=== PATIENT | female | born 1950 | race Caucasian/White ===

== ENCOUNTER → 2024-06-13 | Outpatient (CLI) | payer MEDICARE, SELFPAY ==
[2024-06-13 10:40] LABS: Basophils % (Auto) 0 % (0-2.5); Eosinophils # (Auto) 0.3 Thou/mm3 (0.0-0.5); Eosinophils % (Auto) 4 % (0-10); Hematocrit 43.7 % (36.0-46.0); Hemoglobin 14.1 g/dL (12.0-16.0); Immature Granulocytes % (Auto) 0 % (0-0); Immature Granulocytes Auto 0.03 Thou/mm3 (0.00-0.00); Lymphocytes # (Auto) 1.4 Thou/mm3 (1.0-4.8); Lymphocytes % (Auto) 19 % (10-50); Mean Corpuscular HGB Conc 32.3 g/dl (31.0-37.0); Mean Corpuscular Hemoglobin 30.2 pg (25.0-35.0); Mean Corpuscular Volume 94 fL (80-100); Monocytes # (Auto) 0.4 Thou/mm3 (0.0-0.8); Monocytes % (Auto) 6 % (0-12); Neutrophils # (Auto) 5.1 Thou/mm3 (1.8-7.7); Neutrophils % (Auto) 71 % (37-80); Nucleated Red Blood Cell % 0 /100 WBC (0); Platelet Count 327 Thou/mm3 (140-440); RDW Standard Deviation 46.1 fL (36.4-46.3); Red Blood Count 4.67 Miln/mm3 (4.00-5.20); White Blood Count 7.2 Thou/mm3 (3.6-11.0)
[2024-06-13 10:49] LABS: Glucose Estimated Average 97 mg/dL (80-131)
[2024-06-13 10:57] LABS: Sed Rate (ESR) 11 mm/hr (0-30)
[2024-06-13 11:02] LABS: Alanine Aminotransferase 21 U/L (10-49); Albumin, Serum 4.7 gm/dL (3.4-4.8); Albumin/Globulin Ratio 1.6 (1.2-2.2); Alkaline Phosphatase 69 U/L (46-116); Anion Gap 9 (7-16); Aspartate Amino Transferase 19 U/L (0-34); BUN/Creatinine Ratio 21 Ratio (12-20); Bilirubin,Total 0.6 mg/dL (0.3-1.2); Blood Urea Nitrogen 19 mg/dL (9-23); C-Reactive Protein < 0.4 mg/dL (0.0-0.9); Calcium 9.6 mg/dL (8.3-10.6); Calcium (Corrected) 9.6 mg/dL (8.5-10.1); Carbon Dioxide 28.2 mMol/L (20.0-31.0); Chloride 102 mMol/L (98-107); Creatinine (Component) 0.9 mg/dL (0.6-1.3); Free T4 (Free Thyroxine) 1.29 ng/dL (0.89-1.76); Globulin 2.9 gm/dL (2.3-3.5); Glucose 80 mg/dL (74-106); Osmolality,Calculated 278 (275-295); Potassium 4.2 mMol/L (3.4-5.1); Sodium 139 mMol/L (136-145); Thyroid Stimulating Hormone 0.96 uIU/mL (0.55-4.78); Total Protein 7.6 gm/dL (5.7-8.2); eGFR > 60 See Note
[2024-06-13 11:06] LABS: Ferritin 108 ng/mL (7.3-270.7); T4 (Thyroxine) 9.1 mcg/dL (4.5-10.9)
[2024-06-13 16:03] LABS: RA Screen Negative (Negative)
[2024-06-19 06:58] LABS: ANA Screen, IFA POSITIVE (NEGATIVE); Thyroid Peroxidase Antibodies* <1 IU/mL (<9)
== END | disposition home or self-care (01) ==
LOC: COPL 09:01
PROVIDERS: PCP Family Medicine; Referring Provider Nurse Practitioner Family; Visit Provider Nurse Practitioner Family
DX: R53.83 Other fatigue (principal); D89.9 Disorder involving the immune mechanism, unspecified; Z86.39 Personal history of other endocrine, nutritional and metabolic disease; Z82.49 Family history of ischemic heart disease and other diseases of the circulatory system
CPT/HCPCS: 36415; 80053; 82728; 83036; 84436; 84439; 84443; 85025; 85652; 86038; 86140; 86376; 86430

== ENCOUNTER → 2024-06-13 | Outpatient (CLI) | payer MEDICARE, SELFPAY ==
--- NOTE | 2024-06-13 13:17 | XR_ITS ---
Examination: Thoracolumbar spine 2 views Technique one AP lateral thoracolumbar spine 2 views Exam date and time: June 13, 2024 1349 hours INDICATIONS: Back pain years FINDINGS: Prominent osteopenia Lumbar levoscoliosis 42 degrees Moderate thoracic lumbar spondylosis Diffuse moderate to advanced lumbar degenerative disc disease, most severe L5-S1 IMPRESSION: Severe lumbar levoscoliosis Moderate to advanced diffuse lumbar degenerative disc disease, most severe L5-S1
--- NOTE | 2024-06-13 13:17 | XR_ITS ---
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
== END | disposition home or self-care (01) ==
LOC: CDIM 12:28
PROVIDERS: PCP Family Medicine; Referring Provider Nurse Practitioner Family; Visit Provider Nurse Practitioner Family
DX: M19.071 Primary osteoarthritis, right ankle and foot (principal); M79.672 Pain in left foot; M41.86 Other forms of scoliosis, lumbar region; M51.369 Other intervertebral disc degeneration, lumbar region without mention of lumbar back pain or lower extremity pain
CPT/HCPCS: 72080; 73630

== ENCOUNTER → 2024-06-26 | Outpatient (CLI) | payer MEDICARE, SELFPAY ==
--- NOTE | 2024-06-26 14:08 | XR_ITS ---
Examination: Venous duplex lower extremity sonogram, bilateral. Date and time of exam: June 26, 2024 1438 hours INDICATIONS: Bilateral lower leg swelling and pain beginning several months ago Technique: Multiple sonographic images of the deep venous system have been obtained. B-mode/2-D grayscale imaging of vascular structures and Doppler spectral analysis (waveforms) and color performed Both legs are examined. Findings: Deep venous systems do not demonstrate abnormal echogenicity. All visualized deep veins exhibit compressibility. All visualized deep veins exhibit augmentation. Impression: Negative for deep vein thrombosis
[2024-06-26 14:43] LABS: D-Dimer < 250 ng/mL (<600)
[2024-06-26 14:45] LABS: Cardiac Risk Estimate 4.4 RATIO (3.7-5.6); Cholesterol 192 mg/dL (132-200); HDL Cholesterol 44 mg/dL (40-60); LDL Cholesterol,Calculated 126 mg/dL (0-130); Triglycerides 112 mg/dL (30-150)
[2024-07-04 12:04] LABS: ANA Screen, IFA POSITIVE (NEGATIVE); Complement Component C3* 147 mg/dL (83-193); DNA (ds) Antibody* <1 IU/mL
== END | disposition home or self-care (01) ==
LOC: COPL 13:29
PROVIDERS: PCP Family Medicine; Referring Provider Nurse Practitioner Family; Visit Provider Radiology Diagnostic Radiology
DX: I83.93 Asymptomatic varicose veins of bilateral lower extremities (principal); R76.0 Raised antibody titer; Z82.49 Family history of ischemic heart disease and other diseases of the circulatory system
CPT/HCPCS: 36415; 80061; 85379; 86038; 86160; 86225; 93970

== ENCOUNTER → 2024-07-03 | Outpatient (CLI) | payer MEDICARE, SELFPAY ==
[2024-07-09 06:30] LABS: Fecal Globin Result NOT DETECTED (NOT DETECTED)
== END | disposition home or self-care (01) ==
LOC: SLDO 16:06
PROVIDERS: PCP Family Medicine; Referring Provider Nurse Practitioner Family; Visit Provider Nurse Practitioner Family
DX: Z12.11 Encounter for screening for malignant neoplasm of colon (principal)
CPT/HCPCS: 82274; G0328

== ENCOUNTER → 2024-08-15 | Outpatient (CLI) | payer MEDICARE, SELFPAY ==
[2024-08-15 17:10] LABS: Misc Send Out* See Sep Rpt
[2024-08-15 17:52] LABS: Basophils % (Auto) 0 % (0-2.5); Eosinophils # (Auto) 0.2 Thou/mm3 (0.0-0.5); Eosinophils % (Auto) 4 % (0-10); Hematocrit 41.4 % (36.0-46.0); Hemoglobin 13.6 g/dL (12.0-16.0); Immature Granulocytes % (Auto) 0 % (0-0); Immature Granulocytes Auto 0.01 Thou/mm3 (0.00-0.00); Lymphocytes # (Auto) 1.7 Thou/mm3 (1.0-4.8); Lymphocytes % (Auto) 24 % (10-50); Mean Corpuscular HGB Conc 32.9 g/dl (31.0-37.0); Mean Corpuscular Hemoglobin 29.6 pg (25.0-35.0); Mean Corpuscular Volume 90 fL (80-100); Monocytes # (Auto) 0.4 Thou/mm3 (0.0-0.8); Monocytes % (Auto) 6 % (0-12); Neutrophils # (Auto) 4.4 Thou/mm3 (1.8-7.7); Neutrophils % (Auto) 65 % (37-80); Nucleated Red Blood Cell % 0 /100 WBC (0); Platelet Count 334 Thou/mm3 (140-440); RDW Standard Deviation 44.1 fL (36.4-46.3); Red Blood Count 4.59 Miln/mm3 (4.00-5.20); White Blood Count 6.8 Thou/mm3 (3.6-11.0)
[2024-08-15 18:52] LABS: Sed Rate (ESR) 9 mm/hr (0-30)
[2024-08-15 20:40] LABS: Glucose Estimated Average 94 mg/dL (80-131); Hemoglobin A1C 4.9 % Hgb (4.8-6.0)
[2024-08-15 20:43] LABS: Alanine Aminotransferase 21 U/L (10-49); Albumin, Serum 4.2 gm/dL (3.4-4.8); Albumin/Globulin Ratio 1.8 (1.2-2.2); Alkaline Phosphatase 69 U/L (46-116); Anion Gap 8 (7-16); Aspartate Amino Transferase 18 U/L (0-34); BUN/Creatinine Ratio 19 Ratio (12-20); Bilirubin,Total 0.4 mg/dL (0.3-1.2); Blood Urea Nitrogen 19 mg/dL (9-23); C-Reactive Protein < 0.5 mg/dL (0.0-0.9); Calcium 9.3 mg/dL (8.3-10.6); Calcium (Corrected) 9.3 mg/dL (8.5-10.1); Carbon Dioxide 29.6 mMol/L (20.0-31.0); Chloride 105 mMol/L (98-107); Free T4 (Free Thyroxine) 1.18 ng/dL (0.89-1.76); Globulin 2.3 gm/dL (2.3-3.5); Glucose 104 mg/dL (74-106); Osmolality,Calculated 287 (275-295); Potassium 4.1 mMol/L (3.4-5.1); Sodium 143 mMol/L (136-145); Thyroid Stimulating Hormone 0.86 uIU/mL (0.55-4.78); Total Protein 6.5 gm/dL (5.7-8.2); eGFR 59 See Note
[2024-08-15 20:44] LABS: Folate 11.64 ng/mL (>5.38); Vitamin B12 276 pg/mL (211-911); Vitamin D 25 Hydroxy Total 11.2 ng/mL (7.3-40.2)
[2024-08-16 15:40] LABS: RA Screen Negative (Negative)
== END | disposition home or self-care (01) ==
PROVIDERS: PCP Internal Medicine; Referring Provider Internal Medicine; Visit Provider Internal Medicine
DX: M19.90 Unspecified osteoarthritis, unspecified site (principal); M51.362 Other intervertebral disc degeneration, lumbar region with discogenic back pain and lower extremity pain; R20.2 Paresthesia of skin; R21 Rash and other nonspecific skin eruption; R76.8 Other specified abnormal immunological findings in serum
CPT/HCPCS: 36415; 80053; 82306; 82607; 82746; 83036; 84439; 84443; 85025; 85652; 86140; 86146; 86147; 86160; 86200; 86225; 86235; 86376; 86430; 86812; 86880

== ENCOUNTER → 2024-10-03 | Outpatient (CLI) | payer MEDICARE, SELFPAY ==
--- NOTE | 2024-10-03 14:45 | XR_ITS ---
Examination: MRI lumbar spine without contrast Date and time of exam: October 03, 2024 1529 hours INDICATIONS: Low back pain 30 years radiating down the legs Technique: Multiple MRI axial and sagittal sections lumbar spine. Sagittal T2-weighted images, TR 3500, TE 118 T1 weighted transverse sections, TR 688 T8.5, T2-weighted sagittal sections T1 weighted sagittal sections TR 621, TE 30 T2 axial sections, TR 4, 190, TE 84. Findings: Civil Engineering Design Draftsperson film severe lumbar levoscoliosis 38 degrees Diffuse lumbar disc desiccation Moderate disc narrowing L5-S1 No spondylolisthesis L5-S1 up to 8 mm left paracentral subarticular foraminal disc bulge, displacing the left S1 nerve root L4-L5 prominent left facet arthropathy with narrowing at the left intervertebral foramen mild left L4 ganglionic compression L3-L4 6 mm right foraminal disc bulges no ganglionic compression L2-L3 3 mm central left paracentral disc bulge L1-2 no disc protrusion IMPRESSION: L5-S1 8 mm left paracentral subarticular foraminal disc bulge displacing the left S1 nerve root L4-L5 prominent left facet arthropathy narrowing the left intervertebral foramen with mild left L4 ganglionic compression
== END | disposition home or self-care (01) ==
LOC: SMRI 14:36
PROVIDERS: PCP Family Medicine; Referring Provider Neurological Surgery; Visit Provider Neurological Surgery
DX: M47.816 Spondylosis without myelopathy or radiculopathy, lumbar region (principal); M48.061 Spinal stenosis, lumbar region without neurogenic claudication; G95.20 Unspecified cord compression; M51.370 Other intervertebral disc degeneration, lumbosacral region with discogenic back pain only
CPT/HCPCS: 72148

== ENCOUNTER 2024-11-06 15:00 | Outpatient (RCR) | payer MEDICARE, SELFPAY ==
--- NOTE | 2024-10-29 16:10 | PTNOTE_ITS ---
PT OP Initial Eval Patient Information Outpatient Physical Therapy Treatment Date: 10/29/24 Visit Reasons: Radiculopathy Cervical Region Medical Diagnosis: M54.5; M54.16 Treatment Dx #1: Back Pain Treatment Dx #2: LE weakness Start of Care: 10/29/24 Date of Onset: 6 months ago Smoking Status Smoking Status: Never smoker Initial Assessment Subjective: Pt is a 74 y/o female reports of chronic back pain (12/22) with BLE weakness L>R worsening 6 months ago. Pt's most recent MRI found multiple disc bulge worse at L5-S1 8 mm. Pt's past xray showed 42 deg of lumbar levoscoliosis. Pt has limitation with sitting, standing, chores, walking, lifting, balance, and performing recreational activities. Objective: L/S AROM: all motions are 50 % towards end range with pain Hip PROM: all motions are WFL except IR bilaterally Hip MMTs: grossly 3/5 Special Test (+) slump Assessment: Pt demonstrate back pain with BLE weakness consistent with MRI findings leading to difficulty with ADLs. Pt will attempt physical therapy if pain persist Pt will be refer back to MD for further consultation. Short Term and International Editorial Producer Goals 1) Increase L/S AROM WFL in 6 wks to be able to perform chores 2) Decrease back pain to 4/10 in 6 wks to be able to stand more than 30 mins 3) Increase core strength WFL in 6 wks to be able to perform lifting activities 4) Increase hip MMTs grossly to 4-/5 in 6 wks to be able to walk more than 30 mins 5) Indep with HEP Treatment Plan 1) Manual Therapy 2) Therapeutic Activities 3) Therapeutic Exercises 4) Modalities (ice, heat) Frequency and Duration: 2 x wk for 6 wks Certification Dates: 10/29/24 to 01/29/25 Procedure Charges OP PT Eval Mod Complex 30 minutes: Yes
--- NOTE | 2024-11-06 16:28 | PT.ODAYNRPT ---
PT Outpatient Daily Note OP Daily Note Outpatient Physical Therapy Treatment Date: 11/06/24 Visit Reasons: Radiculopathy Cervical Region Subjective: Pt reports she often gets leg cramps where they are so debilitating she can not move. Objective: Please see flow sheet for the mary ann list. Assessment: Pt demonstrates fair activity tolerance, minimal pain with light interventions. Plan: Continue with pOC. Length of Time (minutes) of Treatment: 30 Minutes Procedure Charges Therapeutic Exercise 30 minutes: Yes
== END 2024-11-11 23:59 | disposition home or self-care (01) ==
LOC: CPTX 15:00
PROVIDERS: PCP Neurological Surgery; Referring Provider Neurological Surgery; Visit Provider Neurological Surgery
DX: M54.16 Radiculopathy, lumbar region (principal); R53.1 Weakness; M41.86 Other forms of scoliosis, lumbar region; G89.29 Other chronic pain
CPT/HCPCS: 97110; 97162

== ENCOUNTER 2024-12-02 13:30 | Outpatient (RCR) | payer MEDICARE, SELFPAY ==
--- NOTE | 2024-11-13 15:37 | PTNOTE_ITS ---
PT Outpatient Daily Note OP Daily Note Outpatient Physical Therapy Treatment Date: 11/13/24 Visit Reasons: neck pain Subjective: Pt reports LBP is moderate today. Objective: Please see flow sheet for ther ex list. Assessment: Added interventions completed with no complaints. Plan: Continue with POC. Length of Time (minutes) of Treatment: 30 Minutes FOREIGN SERVICE TEACHER Service Modifier Method I: Divide the number of min of care provided by the FOREIGN SERVICE TEACHER/EL by the total min of care provided then multiply by 100. If greater than 11 percent modifier is required. Method II: Divide the total time of care provided to patient by 10 (round to the nearest whole number) and add 1 min. to set the minimum time requirement. If treatment total was 60 min., then 10% of 6 min PT CQ modifier applied: CQ Modifier applied Procedure Charges Therapeutic Exercise 30 minutes: Yes
--- NOTE | 2024-11-18 13:48 | PTNOTE_ITS ---
PT Outpatient Daily Note OP Daily Note Outpatient Physical Therapy Treatment Date: 11/18/24 Visit Reasons: neck pain Subjective: Pt reports she continues to have pain in her l/s and LE symptoms. Pt mentioned that she also dealing with neck issue and had a dizziness episode when she was grocery shopping, thankfully was holding on to the cart other macias she feels she would have fallen. Pt shared she gets episodes of dizziness. Objective: Please see flow sheet for ther ex list. Assessment: Pt demonstrates poor activity tolerance, continues to report pain and LE symptom.s Plan: Continue with poC. Length of Time (minutes) of Treatment: 30 Minutes REHABILITATION SERVICES COORDINATOR Service Modifier Method I: Divide the number of min of care provided by the REHABILITATION SERVICES COORDINATOR/EL by the total min of care provided then multiply by 100. If greater than 11 percent modifier is required. Method II: Divide the total time of care provided to patient by 10 (round to the nearest whole number) and add 1 min. to set the minimum time requirement. If treatment total was 60 min., then 10% of 6 min PT CQ modifier applied: CQ Modifier applied Procedure Charges Therapeutic Exercise 30 minutes: Yes
--- NOTE | 2024-11-20 14:01 | PTNOTE_ITS ---
PT Outpatient Daily Note OP Daily Note Outpatient Physical Therapy Treatment Date: 11/20/24 Visit Reasons: neck pain Subjective: Pt reports back continues to be painful and legs are sore had bad leg cramps on L LE last night. Objective: Please see flow sheet for ther ex list. Assessment: Pt demonstrates poor activity tolerance due to aggravating symptoms with act ivity. Interventions given alternating sitting and standing to maximize rehab potential. Plan: Continue with poC. Length of Time (minutes) of Treatment: 30 Minutes NEIGHBORHOOD WORKER Service Modifier Method I: Divide the number of min of care provided by the NEIGHBORHOOD WORKER/SHEEP RANCHER by the total min of care provided then multiply by 100. If greater than 11 percent modifier is required. Method II: Divide the total time of care provided to patient by 10 (round to the nearest whole number) and add 1 min. to set the minimum time requirement. If treatment total was 60 min., then 10% of 6 min PT CQ modifier applied: CQ Modifier applied Procedure Charges Therapeutic Exercise 30 minutes: Yes
--- NOTE | 2024-11-27 13:12 | PTNOTE_ITS ---
PT Outpatient Daily Note OP Daily Note Outpatient Physical Therapy Treatment Date: 11/27/24 Visit Reasons: neck pain Subjective: Pt reports back continues to hurt, notices that she is having pain in her R glute. Objective: Please see flow sheet for ther ex list. Assessment: * Modified interventions to accommodate reported pain and back discomfort. Plan: Continue with poc. Length of Time (minutes) of Treatment: 30 Minutes Procedure Charges Therapeutic Exercise 30 minutes: Yes
--- NOTE | 2024-12-02 13:49 | PTNOTE_ITS ---
PT OP Progress/Discharge Note Date of Service: 12/02/24 Progress Note/DC Note Progress Note/Discharge Note: DC Note Patient Information Visit Reasons: neck pain Medical Diagnosis: M54.5; M54.16 Treatment Dx #1: Back Pain Treatment Dx #2: LE Weakness Service Continue Service or Discharge: Discharge Discharge Date: 12/02/24 Status Subjective: Pt's back and legs continues to hurt. Pt mentioned she almost stumble a few times at the store due to legs giving out or feeling numb. Pt still has limitation with sitting, standing, chores, self care, cooking, cleaning, and per forming recreational activities. Objective: L/S AROM: all motions are 50 % towards end range Hip PROM: all motions are WFL except IR bilaterally Hip MMTs: grossly 3/5 Special Test (+) slump (+) SLR Assessment: Pt demonstrate limited L/S mobility and continue weakness leading to difficulty with ADLs. Pt will no longer benefit from physical therapy due to minimal progress towards goals. Pt was instructed on HEP last session and educated to continue exercises to maintain overall mobility. Pt performed all exercises safely, thank you for your referrals Plan: D/C home with HEP and follow up with MD URRUTIA Procedure Charges Therapeutic Exercise 30 minutes: Yes
== END 2024-12-12 23:59 | disposition home or self-care (01) ==
LOC: CPTX 13:30
PROVIDERS: PCP Neurological Surgery; Referring Provider Neurological Surgery; Visit Provider Neurological Surgery
DX: M51.17 Intervertebral disc disorders with radiculopathy, lumbosacral region (principal); M41.86 Other forms of scoliosis, lumbar region; R26.2 Difficulty in walking, not elsewhere classified; R26.89 Other abnormalities of gait and mobility
CPT/HCPCS: 97110

== ENCOUNTER 2025-04-10 11:56 | Inpatient (IN) | payer MEDICARE, SELFPAY ==
[2025-04-10] VITALS (7 sets, daily range): BP systolic 139–164; BP diastolic 76–89; PULSE 54–73; RESP 15–23; TEMP 36–37.1; O2SAT 95–99; BMI 32.3; BMI 32.1
--- NOTE | 2025-04-10 12:02 | EKG_ITS ---
[facility] Test Date: 2025-04-10 Pat Name: ESME LIZAMA Department: Room: - Gender: Female Aquatic Physiotherapist: : 1950 Requested By: Rasheed Huggins (SOLO) Order Number: [id number] Reading MD: Rasheed Huggins (CLINICAL DOCUMENTATION CONSULTANT) Measurements Intervals Coleman Rate: 58 P: 56 MS: 171 QRS: 18 QRSD: 92 T: 36 QT: 416 QTc: 409 Interpretive Statements SINUS BRADYCARDIA No previous ECG available for comparison /store/S0/[id number]/[id number].pdf
--- NOTE | 2025-04-10 12:02 | XR_ITS ---
Examination: CT brain head without contrast. 2-D sagittal coronal reconstructions Date and time of exam: April 10, 2025, 12:13 p.m. INDICATIONS: Stroke alert, onset focal neurologic deficit including facial numbness today CTDI: vol (mGy): 49.6 1024 DLP: (mGycm): 1024 Technique: Multiple CT axial sections of the brain have been obtained, 5 mm slice thickness. Contrast has not been administered. 2-D sagittal, coronal reconstructions have been obtained Low dose protocols were performed. One or more of the following dose reduction techniques were used; automated exposure control, adjustment of the mA and/or KV according to patient size, use of iterative reconstruction technique. Findings: No significant ventricular enlargement. Intra-axial or extra-axial hemorrhage density is not seen. No mass effect or midline shift Basal cisterns are not remarkable. Fourth ventricle is midline. Cranial vault intact. Impression: Negative for acute hemorrhage, mass effect or midline shift
--- NOTE | 2025-04-10 12:02 | XR_ITS ---
EXAMINATION: AP chest single view TECHNIQUE: Portable upright AP chest single view Date and time: April 10, 2025, 1317 hours, comparison September 13, 2016 INDICATIONS: Stroke alert today FINDINGS: Mild prominence left ventricle No aspiration pneumonia. Mild vascular congestion. Prominent osteopenia IMPRESSION: No aspiration pneumonia
--- NOTE | 2025-04-10 12:02 | XR_ITS ---
Examination: CTA carotids with intravenous contrast CTA brain, head with intravenous contrast. 2-D sagittal, coronal reconstructions. 3-D reconstructions. Exam date and time: April 10, 2025, 12:29 p.m. INDICATION: Stroke alert today CTDI: vol (mGy) 34.9 DLP: (mGycm) 460 Technique: Multiple CTA axial brain, head carotid images post intravenous contrast injection 75 cc, [id number]. 2-D sagittal, coronal reconstructions. 3-D reconstructions, 3-D post processing including vascular maximum intensity projection images. Low dose protocols were performed. One or more of the following dose reduction techniques were used; automated exposure control, adjustment of the mA and/or KV according to patient size, use of iterative reconstruction technique. Findings: No critical common carotid carotid bifurcation or internal carotid artery stenoses Codominant vertebral arteries in the neck with no critical stenoses Intracranial vertebral arteries basilar artery posterior cerebral branches fill with no occlusions Petrous juxtasellar portions of the internal carotid arteries M1 segments middle cerebral artery branches and anterior cerebral arteries fill with no large vessel occlusions IMPRESSION: No significant neck arterial stenoses No cerebral large vessel arterial occlusions or thrombus
--- NOTE | 2025-04-10 12:05 | EDNOTE_ITS ---
ED General RME/HPI General Chief complaint: General Adult/Misc Complain Stated complaint: LOST SPEECH, WENT BLACK, DISORIENTED LKW 10:30 Time Seen by Provider: 04/10/25 12:04 Arrival date/time: 04/10/25 11:56 74-year-old female patient with significant history of hypertension, CAD, currently taking atenolol, not taking any blood thinner, was brought in by family for evaluation regarding strokelike symptoms. Last well-known time 10:30 AM today. Patient suddenly developed inability to speak peak, numbness to the lower lip, drooling, seeing black, loss of vision, slight thinning of the throat, disoriented. According to the patient it lasted for more than an hour about 1 hour and a half. According to the patient symptoms gradually improved still having mild symptoms on my initial evaluation. Patient denies any upper or lower extremity weakness. Patient denies any fall. Denies any other complaints. Stroke alert was initiated right away. Related Data Home Medications ?Medication ?Instructions ?Recorded ?Confirmed losartan 100 mg tablet 100 mg PO QDAY 04/20/2004/15 naproxen 500 mg tablet 500 mg PO BID 04/20/2005/04 Allergies Allergy/AdvReac Type Severity Reaction Status Date / Time codeine Allergy Unknown Verified 04/10/25 12:05 Sulfa (Sulfonamide Allergy Unknown Verified 04/10/25 12:05 Antibiotics) acetaminophen (From Vicodin) Allergy Nausea Verified 04/10/25 12:05 hydrocodone (From Vicodin) Allergy Nausea Verified 04/10/25 12:05 Review of Systems Review of Systems Narrative Review of Systems: Review of system reviewed and within normal limits except mentioned in HPI ED Exam Narrative Physical exam: VITAL SIGNS: Reviewed. GENERAL APPEARANCE: Alert and interactive, follows commands, no acute distress, HEAD AND FACE: Non-traumatic. ENT: PERRL, pink conjunctivitis, eyelid no trauma, Mucous membrane moist. NECK: Supple, nontender, no nuchal rigidity. CHEST: No tenderness, no crepitus, no paradoxical movement, no retractions. LUNGS: Clear, well ventilated, symmetric, no rales, no wheezing, no ronchi, no stridor, good breath sounds bilaterally. HEART: Regular rate, regular rhythm, no murmur, no gallops. ABDOMEN: Soft, positive bowel sounds, nondistended, no guarding, nontender, no rebound, no masses, RECTAL: Deferred. GENITAL: Deferred. NEUROLOGICAL: Gross motor function intact sensory function intact, Appropriate for age. MUSCULOSKELETAL: low back nontender, full range of motion. EXTREMITIES: Nontender, full range of motion. SKIN: Color pink, dry, no rash, no lacerations, no abrasions, no contusions. LYMPHATICS: Deferred. Course Quality Measures none Orders Category Date Time Status Bedside Blood Glucose NOW Care 04/10/25 12:02 Active COVID-19 Screening Questionnaire NOW Care 04/10/25 13:37 Active Jig Boring Machine Operator For Metal NOW Care 04/10/25 12:02 Active Continuous Pulse Oximetry NOW Care 04/10/25 12:02 Completed Decision to Admit X1 Care 04/10/25 13:37 Completed EKG (ED ONLY) *Do not use* NOW Care 04/10/25 12:02 Completed Insert IV NOW Care 04/10/25 12:02 Active NIH Stroke Scale now Care 04/10/25 12:02 Active NPO NOW Care 04/10/25 12:02 Active Nurse Swallow Screen x1 Care 04/10/25 12:02 Active Consult to Neurology / Tele-Neurology Routine Cons 04/10/25 12:[address] angio stroke protocol Stat Exams 04/10/25 12:[address] stroke protocol Stat Exams 04/10/25 12:02 Completed EKG (ED Only) Stat Exams 04/10/25 12:02 Draft XR chest 1V portable Stat Exams 04/10/25 12:02 Completed CBC Stat Lab 04/10/25 14:15 Completed Comprehensive Metabolic Panel Stat Lab 04/10/25 12:30 Completed Drug Screen,Urine Stat Lab 04/10/25 13:46 Completed Magnesium Stat Lab 04/10/25 12:30 Completed Partial Thromboplastin Time Stat Lab 04/10/25 12:30 Completed Prothrombin Time with INR Stat Lab 04/10/25 12:30 Completed Troponin I Stat Lab 04/10/25 12:30 Completed Urinalysis, C/S if Indicated Stat Lab 04/10/25 13:46 Completed Aspirin [Ecotrin] Med 04/10/25 13:31 Discontinued 81 mg PO X1 ONE Labetalol* IV [Trandate* IV] Med 04/10/25 12:02 Active 10 mg IVP Q15M PRN Ondansetron Inj [Zofran Inj] Med 04/10/25 12:02 Active 4 mg IVP Q4HR PRN Vital Signs Vital signs: Vital Signs Temperature 98.7 F 04/10/25 12:03 Pulse Rate 64 04/10/25 12:03 Respiratory Rate 18 04/10/25 12:03 Blood Pressure 164/83 H 04/10/25 12:03 Pulse Oximetry (%) 99 04/10/25 12:03 Oxygen Delivery Method Room Air 04/10/25 12:03 Discharge Plan Plan Patient Disposition: Admit Acute Care w/in Hospital Discharge Disposition comment: Stable Problem List Clinical Impression: Stroke-like symptom MDM Narrative MDM hospital course (for use when minimal MDM required): 74-year-old female patient with significant history of hypertension, CAD, currently taking atenolol, not taking any blood thinner, was brought in by family for evaluation regarding strokelike symptoms. Last well-known time 10:30 AM today. Patient suddenly developed inability to speak peak, numbness to the lower lip, drooling, seeing black, loss of vision, slight thinning of the throat, disoriented. According to the patient it lasted for more than an hour about 1 hour and a half. According to the patient symptoms gradually improved still having mild symptoms on my initial evaluation. Patient denies any upper or lower extremity weakness. Patient denies any fall. Denies any other complaints. Stroke alert was initiated right away. CTA and plain CT of the head and neck all came back unremarkable. EKG showed sinus bradycardia, ventricular rate of 58 bpm, no ST segment elevation depression noted. Patient's workup all came back unremarkable. Plan of care discussed with the patient, who agrees to be admitted. Spoke with teleneurologist, who recommends admission for stroke workup patient patient was given 81 mg of aspirin. Spoke with hospitalist, who admitted the patient. Medication Administration(s) Medication Administration History Acetaminophen (Acetaminophen 325 Mg Tablet) 650 mg PO Q6H PRN PRN Reason: PAIN SCALE 1-3 (mild Stop: 05/10/25 15:32 Aspirin (Aspirin Ec 81 Mg Tabec) 81 mg PO QDAY [facility] Stop: 05/10/25 15:44 Heparin Sodium (Porcine) (Heparin Sod Inj 5000 Unit/Ml Vial) 5,000 unit SC Q12HR AIMEE Stop: 04/24/25 20:59 Sodium Chloride (Ns) 1,000 mls @ 75 mls/hr IV .[id number] AIMEE Stop: 04/11/25 04:49 Labetalol HCl (Labetalol Inj 5 Mg/Ml Vial 4 Ml) 10 mg IVP Q15M PRN PRN Reason: hypertension Ondansetron HCl (Ondansetron Inj 2 Mg/Ml Inj 2 Ml) 4 mg IVP Q4HR PRN PRN Reason: NAUSEA OR VOMITING Stop: 05/10/25 12:01 Sennosides (Senna Tablet) 1 tab PO QDAY PRN; Protocol PRN Reason: constipation Stop: 05/10/25 15:32 Discontinued Medications Aspirin (Aspirin Ec 81 Mg Tabec) 81 mg PO X1 ONE Stop: 04/10/25 13:32 Last Admin: 04/10/25 13:45 Dose: 81 mg Documented By: RONEN Diagnosis Differential Diagnosis ED Complaint MDM: Strokelike symptoms, atypical syncope, although pt's initial presentation w Diagnoses ruled out and/or further discussions: Strokelike symptoms
--- NOTE | 2025-04-10 12:05 | PC.NURSE ---
STROKE ALERT CALLED 1203.
--- NOTE | 2025-04-10 12:26 | PC.NURSE ---
PER DR. DOMINGUEZ (TELENEUROLOGIST), NIH SCORE IS 0; PT NOT A CANDIDATE FOR THROMBOLYTICS AT THIS TIME.
[2025-04-10 12:51] LABS: INR 1.0 (0.9-1.3); Partial Thromboplastin Time 20.2 Seconds (22.0-36.0); Prothrombin Time 11.0 Seconds (9.0-12.2)
[2025-04-10 12:54] LABS: Alanine Aminotransferase 28 U/L (10-49); Albumin, Serum 4.6 gm/dL (3.4-4.8); Anion Gap 9 (7-16); Aspartate Amino Transferase 31 U/L (0-34); BUN/Creatinine Ratio 9 Ratio (12-20); Bilirubin,Total 0.6 mg/dL (0.3-1.2); Blood Urea Nitrogen 9 mg/dL (9-23); Calcium 9.1 mg/dL (8.3-10.6); Calcium (Corrected) 9.1 mg/dL (8.5-10.1); Carbon Dioxide 25.3 mMol/L (20.0-31.0); Chloride 106 mMol/L (98-107); Creatinine (Component) 1.0 mg/dL (0.6-1.3); Estimated Creatinine Clearance 57.2 mL/min (>60); Globulin 2.6 gm/dL (2.3-3.5); Glucose 97 mg/dL (74-106); Magnesium 2.3 mg/dL (1.6-2.6); Osmolality,Calculated 278 (275-295); Potassium 4.6 mMol/L (3.4-5.1); Sodium 140 mMol/L (136-145); Total Protein 7.2 gm/dL (5.7-8.2); Troponin I < 0.020 ng/mL (0.0-0.045); eGFR 59 See Note
[2025-04-10 12:55] LABS: Albumin/Globulin Ratio 1.8 (1.2-2.2); Alkaline Phosphatase 61 U/L (46-116)
--- NOTE | 2025-04-10 13:01 | PD.TNEURO ---
Tele Neuro Consultation Consultation Date 04/10/25 Most Recent Vital Signs Last Vital Signs Temp 98.7 F 04/10/25 12:03 Pulse 64 04/10/25 12:35 Resp 18 04/10/25 12:03 BP 164/83 H 04/10/25 12:03 Pulse Ox 99 04/10/25 12:03 O2 Del Method Room Air 04/10/25 12:03 Laboratory-Coagulation Panel PT 11.0 Seconds (9.0-12.2) 04/10/25 12:30 INR 1.0 (0.9-1.3) 04/10/25 12:30 APTT 20.2 Seconds (22.0-36.0) L 04/10/25 12:30 Consultation Narrative [facility] TeleNeurology Consult Services Patient Name:???Carolin Peñaloza Date of :???1950 Identification Number:??? Date of Service:???04/10/2025 12:04:52 Diagnosis:?I63.89 - Cerebrovascular accident (CVA) due to other mechanism ([facility]) Impression: ?74 year old female with acute onset of global cerebral dysfunction and difficulty with speaking. The only atypical feature for syncope is the duration of her symptoms. Current NIHSS is zero. CT Head is negative for hemorrhage. Not a candidate for thrombolysis given lack of symptoms. At this time I would recommend continuing stroke and syncope/hypotension work up. Our recommendations are outlined below. Recommendations: ? Stroke/Telemetry Floor ? Neuro Checks (Q4) ? Bedside Swallow Eval ? DVT Prophylaxis ? IV Fluids, Normal Saline ? Head of Bed 30 Degrees ? Euglycemia and Avoid Hyperthermia (PRN Acetaminophen) ? Initiate or continue Aspirin 81 MG daily ?MRI Brain. ?Cardiac work up per primary. Sign Out: ? Discussed with Emergency Department Provider Advanced Imaging:Advanced Imaging Deferred because: Non-disabling symptoms as verified by the patient; no cortical signs so not consistent with LVO Metrics: Last Known Well: 04/10/2025 10:30:00 Arrival Time: 04/10/2025 11:56:09 Activation Time: 04/10/2025 12:04:52 Initial Response Time: 04/10/2025 12:08:55Symptoms: loss of consciousness. Initial patient interaction: 04/10/2025 12:14:46 NIHSS Assessment Completed: 04/10/2025 12:19:44Patient is not a candidate for Thrombolytic. Thrombolytic Medical Decision: 04/10/2025 12:19:47Patient was not deemed candidate for Thrombolytic because of following reasons: Resolved symptoms . CT Head: I personally reviewed all the CT images that were available to me and it showed: no evidence of hemorrhage. Primary Provider Notified of Diagnostic Impression and Management Plan on: 04/10/2025 12:58:59 History of Present Illness:Patient is a 74 year old Female. Patient was brought by private transportation with symptoms of loss of consciousness. The patient reports that she lost her speech the blacked out. She was out for a few seconds and when she came to she had some right sided numbness. The patient had gotten up to get a cup of coffee. Her throat tightened and she couldn't breath. She lost feeling. She started drooling. She was disoriented and could not speak. She lost her vision. These symptoms lasted about 90 minutes. She denies any previous history of similar events. ? Past Medical History: ?Hypertension Medications: No Anticoagulant use? No Antiplatelet use Reviewed EMR for current medications Allergies:? Reviewed Social History: Smoking: No Alcohol Use: No Drug Use: No Family History: There is no family history of premature cerebrovascular disease pertinent to this consultation ROS : 14 Points Review of Systems was performed and was negative except mentioned in HPI. Past Surgical History: There Is No Surgical History Contributory To Today?s Visit ? Examination: BP(164/83),?Pulse(64),?Blood Glucose(97) 1A: Level of Consciousness - Alert; keenly responsive?+ 0 1B: Ask Month and Age - Both Questions Right?+ 0 1C: Blink Eyes & Squeeze Hands - Performs Both Tasks?+ 0 2: Test Horizontal Extraocular Movements - Normal?+ 0 3: Test Visual Hammond - No Visual Loss?+ 0 4: Test Facial Palsy (Use Grimace if Obtunded) - Normal symmetry?+ 0 5A: Test Left Arm Motor Drift - No Drift for 10 Seconds?+ 0 5B: Test Right Arm Motor Drift - No Drift for 10 Seconds?+ 0 6A: Test Left Leg Motor Drift - No Drift for 5 Seconds?+ 0 6B: Test Right Leg Motor Drift - No Drift for 5 Seconds?+ 0 7: Test Limb Ataxia (FNF/Heel-Olivia) - No Ataxia?+ 0 8: Test Sensation - Normal; No sensory loss?+ 0 9: Test Language/Aphasia - Normal; No aphasia?+ 0 10: Test Dysarthria - Normal?+ 0 11: Test Extinction/Inattention - No abnormality?+ 0 NIHSS Score:?0 Pre-Morbid Modified Cameron Scale: 0 Points = No symptoms at all Spoke with :?LULI Landa This consult was conducted in real time using interactive audio and video technology. Patient was informed of the technology being used for this visit and agreed to proceed. Patient located in hospital and provider located at home/office setting. Patient is being evaluated for possible acute neurologic impairment and high probability of imminent or life-threatening deterioration. I spent total of 55 minutes providing care to this patient, including time for face to face visit via telemedicine, review of medical records, imaging studies and discussion of findings with providers, the patient and/or family. Dr Nomi Colvin [facility] For Inpatient follow-up with [facility] physician please call [facility] at . As we are not an outpatient service for any post hospital discharge needs please contact the hospital for assistance. If you have any questions for the [facility] physicians or need to reconsult for clinical or diagnostic changes please contact us via [facility] at . Non-radiologist review of imaging performed to assist with emergent clinical decision-making. Remote physician workstations do not possess the same resolution, calibration, or diagnostic capabilities as hospital-based radiology reading stations, and formal radiologist read is necessary. Signature :?Nomi Colvin ?
[2025-04-10] MEDS: ASPIRIN EC 81 MG TABEC PO (13:45)
[2025-04-10 14:20] LABS: Collection Type, Urine Clean Catch; WBC,Urine 0 /hpf (0-5)
[2025-04-10 14:22] LABS: Basophils # (Auto) 0.0 Thou/mm3 (0.0-0.2); Basophils % (Auto) 0 % (0-2.5); Eosinophils # (Auto) 0.2 Thou/mm3 (0.0-0.5); Eosinophils % (Auto) 2 % (0-10); Hematocrit 42.2 % (36.0-46.0); Hemoglobin 13.8 g/dL (12.0-16.0); Immature Granulocytes Auto 0.02 Thou/mm3 (0.00-0.00); Lymphocytes # (Auto) 1.9 Thou/mm3 (1.0-4.8); Lymphocytes % (Auto) 23 % (10-50); Mean Corpuscular HGB Conc 32.7 g/dl (31.0-37.0); Mean Corpuscular Hemoglobin 30.3 pg (25.0-35.0); Mean Corpuscular Volume 93 fL (80-100); Monocytes # (Auto) 0.5 Thou/mm3 (0.0-0.8); Monocytes % (Auto) 6 % (0-12); Neutrophils # (Auto) 5.4 Thou/mm3 (1.8-7.7); Neutrophils % (Auto) 68 % (37-80); Nucleated Red Blood Cell # 0.00 Thou/mm3 (0.00-0.00); Nucleated Red Blood Cell % 0 /100 WBC (0); Platelet Count 239 Thou/mm3 (140-440); RDW Standard Deviation 48.5 fL (36.4-46.3); Red Blood Count 4.56 Miln/mm3 (4.00-5.20); White Blood Count 7.9 Thou/mm3 (3.6-11.0)
[2025-04-10 14:29] LABS: Bilirubin,Urine Negative (Negative); Blood,Urine Negative (Negative); Clarity,Urine Clear (Clear/Hazy); Color,Urine Lt-Yellow (Lt Yel-Yel); Culture Indicated,Urine Not Indicated; Glucose, Urine Negative (Negative); Ketones,Urine Negative (Negative); Leukocyte Esterase,Urine Negative (Negative); Nitrite,Urine Negative (Negative); PH,Urine 6.0 (5.0-7.0); Protein,Urine Negative (Neg - Trace); RBC,Urine 1 /hpf (0-3); Specific Gravity,Urine 1.025 (1.001-1.035); Squamous Epithelial Cell,Urine < 1 /hpf (0-5); Urobilinogen,Urine Negative mg/dL (0.0-1.0)
[2025-04-10 14:34] LABS: Amphetamine/Methamp Scrn,U Negative (Negative); Barbiturate Screen,Urine Negative (Negative); Benzodiazepines Screen,Urine Negative (Negative); Benzoylecgonine Screen, Ur Negative (Negative); Fentanyl Screen,Urine Negative (Negative); Opiate Screen,Urine Negative (Negative); THC Screen,Urine Negative (Negative)
--- NOTE | 2025-04-10 15:38 | ECHO_ITS ---
Patient Info Name: Carolin Peñlaoza Age: 74 years : 1950 Gender: Female Ht: 170 cm Wt: 93 kg BSA: 2.13 m2 BP: 179 / 82 mmHg HR: 62 bpm Exam Date: 04/11/2025 9:25 AM Admit Date: 04/10/2025 Site: [facility] Room Number: [id number] Patient Status: I Exam Type: CA echo doppler complete Brand Sales Consultant: Elisa Caraballo Ordering Physician: Samuel López Study Info Indications presyncope, rule out PFO per stroke r/o protocol - Contrast/Agitated Saline Contrast/Ag. Saline: Agitated Saline Amount: --- ml IV Access Condition: patent with no signs of infiltration Primary Location: S2NX Prior Interventions Negative Bubble study. Left Ventricular Outflow Tract Name Value Normal LVOT 2D LVOT Diameter 1.8 cm LVOT Doppler LVOT Peak Velocity 106 cm/s LVOT Mean Gradient 2 mmHg LVOT VTI 26 cm LVOT VTI/AV VTI Ratio 0.8 LVOT Stroke Volume 65 ml Pulmonic Valve Name Value Normal PV Doppler PV Peak Velocity 98 cm/s Mitral Valve Name Value Normal MV Doppler MV Mean Gradient 31 mmHg MV Decel Screven 253 cm/s2 MV PHT 82 ms MV Area (PHT) 2.7 cm2 4.0-5.0 MV Area (Cont Eq VTI) 0.7 cm2 MV Diastolic Function MV E Peak Velocity 71 cm/s MV A Peak Velocity 90 cm/s MV E/A 0.8 MV Annular TDI MV Septal e' Velocity 12.6 cm/s MV E/e' (Septal) 5.7 MV Lateral e' Velocity 9.1 cm/s MV E/e' (Lateral) 7.8 MV e' Average 10.87 cm/s MV E/e' (Average) 6.7 Tricuspid Valve Name Value Normal TV Regurgitation Doppler TR Peak Velocity 219 cm/s Estimated PAP/RSVP RA Pressure 3 mmHg <=5 PA Systolic Pressure 22 mmHg <36 RV Systolic Pressure 22 mmHg <36 TV Annular TDI TV Lateral Alida s' Velocity 17.1 cm/s >=9.5 Aortic Valve Name Value Normal AV 2D/MM AV Cusp Sep (MM) 1.6 cm AV Doppler AV Peak Velocity 158 cm/s AV Mean Gradient 5 mmHg AV VTI 34 cm AV Area (Cont Eq VTI) 1.9 cm2 >=3.0 AV Area (Cont Eq Cliff) 1.7 cm2 AV DI (Cliff) 0.67 AV Regurgitation 2D LVOT Area 2.5 cm2 Ventricles Name Value Normal LV Dimensions 2D/MM IVS Diastolic Thickness (2D) 1.0 cm 0.6-0.9 LVID Diastole (2D) 4.4 cm 3.8-5.2 LVIW Diastolic Thickness (2D) 1.0 cm 0.6-0.9 LVID Systole (2D) 3.2 cm 2.2-3.5 LVOT Diameter 1.8 cm LV Mass (2D Cubed) 147.83 g 67.00-162.00 LV Mass Index (2D Cubed) 69 g/m2 43-95 Relative Wall Thickness (2D) 0.45 <=0.42 IVS/LVIW Diastolic Thickness (2D) 1.00 0.00-1.50 LV Fractional Shortening/Ejection Fraction 2D/MM LV Fractional Shortening (2D) 27 % 27-45 LV EF (2D Teichholz) 53 % RV Dimensions 2D/MM TV Lateral Alida s' Velocity 17.1 cm/s >=9.5 Atria Name Value Normal LA Dimensions LA Volume (4C A-L) 53 ml LA Volume (BP A-L) 57 ml Left Ventricle Left ventricular chamber dimension is normal. Left ventricular systolic function is normal with visually estimated ejection fraction of 55-60%. There is mild concentric hypertrophy noted in the left ventricle. Left ventricular segmental wall motion is normal. There is grade I diastolic dysfunction in the left ventricle. Right Ventricle Right ventricular chamber dimension is normal. Right ventricular systolic function is normal. Left Atrium Left atrial chamber dimension is mildly enlarged. Right Atrium Right atrial chamber dimension is normal. Aortic Valve The aortic valve is trileaflet. There is no aortic valve sclerosis. There is no aortic valve stenosis with a peak velocity of 158 cm/s, mean gradient of 5 mmHg, and aortic valve area of 1.9 cm2. There is no aortic valve regurgitation. Pulmonic Valve The pulmonic valve is normal. There is no pulmonic valve stenosis. There is no pulmonic regurgitation. Mitral Valve The mitral valve has thickened leaflets. There is mild mitral valve stenosis. There is mild mitral valve regurgitation. Tricuspid Valve The tricuspid valve leaflets are normal. There is no tricuspid valve stenosis. There is trace tricuspid valve regurgitation. No pulmonary hypertension, estimated pulmonary arterial systolic pressure is 22 mmHg and systemic blood pressure of 179 mmHg in systole. Pericardium/Pleural The pericardium appears normal. There is no pericardial effusion. No pleural effusion visualized. Inferior Vena Cava Normal inferior vena cava with >50% collapse upon inspiration consistent with normal right atrial pressure, 3 mmHg. Aorta The aortic measurements are indexed to age and body surface area. The aortic root at the sinus of Valsalva is not well visualized. The prox ascending aorta is not well visualized. Summary 1. Left ventricle size is normal and systolic function is normal. Estimated ejection fraction is 55-60%. There is grade I diastolic dysfunction. There is mild concentric hypertrophy noted. 2. Right ventricle chamber size is normal and systolic function is normal. Estimated RVSP is 22 mmHg. 3. There is no aortic valve sclerosis with no stenosis and no regurgitation. 4. There is mild mitral valve stenosis and mild regurgitation. Mild MAC. 5. There is trace tricuspid valve regurgitation. 6. The left atrium is mildly enlarged. The right atrium is normal. 7. No evidence of PFO. Negative Bubble study. Report Signatures Finalized by Kamala Moran on 04/11/2025 05:57 PM
--- NOTE | 2025-04-10 15:45 | PD.RESHP ---
Documentation for date of: 04/10/25 [facility] History of Present Illness History of present illness: Patient is a 74-year-old female with a PMH of CAD (previous SD in 2006), and hypertension on atenolol who presented on 04/10/25 with a chief complaint of stroke-like symptoms. She reports that around 10 AM in the morning she began experiencing sudden-onset symptoms of dizziness, everything going black (clarified to be a disturbance in vision rather than loss of consciousness), throat tightening, a sensation of her tongue choking her, loss of speech, involuntary drooling and difficulty swallowing, and loss of balance (but did not fall). The episode lasted for about 30 minutes before mostly self-resolving (albeit with some residual speech difficulties), at which point she had her sister bring her to [facility] around 11:00-11:30 AM. She denies ever having any similar prior episodes. Patient also mentioned that she started having twinges of the heart beginning a couple of months ago that were described as paroxysmal stints of chest pain that self-resolve and whose onset seemed unrelated to physical activity, transpiring even at rest. At the time of intake interview in the ED, she endorsed only residual speech difficulties (unnoticed by this card writer hand) and headache but denied any of the symptoms she had experienced earlier in the day. PMH: As above PSH: 2006 balloon angioplasty for SD, 2020 removal of sinus cyst, total hysterectomy, double knee replacement Medications: Atenolol 40 mg PO BID Allergies: Sulfa drugs (reaction: swelling of eyes and lips, not anaphylactic) FH: Dad of massive SD in 1995. Mom at age 95 and had hypertension. SH: Non-contributory In the ED, vitals showed: BP 162/83 HR 58 RR 23 Temp 98.7 SpO2 95% on room air CBC WNL. Coagulation panel WNL. CMP showed eGFR 59 but otherwise WNL. UA was bland and UDS grossly negative. Imagin/27 CXR unremarkable. 04/[address] w/o contrast negative for acute hemorrhage, mass effect, or midline shift. 04/10 head/neck CTA negative for significant neck arterial stenoses and cerebral LVO or thrombus. 04/10 EKG showed sinus bradycardia 58 with normal MA 171 and QTc 409. In the ED, Tele-Neurology evaluated the patient to have an NIHSS of 0 and deemed her not to be a candidate for TNK administration due to lack of ongoing symptoms at the time. She was given aspirin PO, acetaminophen PO, heparin SC, and started on IV NS fluid at 75 cc/hr. Patient was admitted for the work-up and management of stroke-like symptoms. Neurology was consulted and is closely following the case. Review of Systems Review of Systems Systems Reviewed: All systems reviewed, normal except as documented Exam Vital Signs Temp Pulse Resp BP Pulse Ox O2 Del Method 98.7 F 58 L 23 H 162/83 H 95 Room Air 04/10/25 12:03 04/10/25 14:28 04/10/25 14:28 04/10/25 14:28 04/10/25 14:28 04/10/25 14:28 Narrative Exam Physical Exam: General: WDWN obese female who is alert and in no acute distress. Skin: Warm, dry, intact, no obvious rash. Head: Normocephalic, atraumatic. Eye: Normal conjunctiva, PERRL. Throat: Oral mucosa moist. Cardiovascular: Innumerable varicosities of BLE, especially concentrated at the feet, anterior shins, and posterior calves. Regular rate and rhythm, no murmur, normal peripheral perfusion, no edema. Respiratory: Lungs are clear to auscultation, respirations non labored, no crackles, no wheezing. Gastrointestinal: Soft, nontender, non-distended. Psychiatric: Cooperative, appropriate affect. Neuro: Mental status: Alert, oriented, appropriately responding to commands. Speech/Language: Speech fluent, no word finding difficulty or paraphasic errors observed. Language-comprehension, repetition and naming intact. No dysarthria noted. Memory: Grossly recent and remote intact. Cranial Nerves: II: No visual deficits and visual gifford full to confrontation. Pupils 3-5 mm size BL round, reactive to light. III, IV, : EOMI, no nystagmus, no ptosis, no APD, smooth pursuit without saccadic intrusion, conjugate horizontal gaze intact. V: Gross sensation asymmetric in V1 distribution to crude touch with right side being more numb than the left. Gross sensation intact in V2 and V3 distribution to crude touch. Jaw strength normal. VII: No facial asymmetry, able to smile symmetrically and BL good eye closure. VIII: Hearing intact in both ears per finger rubbing. IX, X: Symmetrical palate elevation, uvula in midline. XI: Symmetrical head rotation and shoulder shrug. IX, XII: Midline tongue protrusion. No fasciculations or atrophy noted. Sensory examination Crude touch in bilateral upper and lower extremity grossly intact. Motor examination No drift in bilateral upper extremity 5/5 strength in bilateral upper extremity 5/5 strength in bilateral lower extremity Coordination Tbepzf-te-ohzq test and wtqw-td-[id number] test performed without any difficulty. No dysmetria. Results: Labs 04/11/25 04:30 04/11/25 04:30 Labs: Short CBC 04/10/25 Range/Units 14:15 WBC 7.9 (3.6-11.0) Thou/mm3 Hgb 13.8 (12.0-16.0) g/dL Hct 42.2 (36.0-46.0) % Plt Count 239 (140-440) Thou/mm3 BMP 04/10/25 12:30 Sodium 140 Potassium 4.6 Chloride 106 Carbon Dioxide 25.3 BUN 9 Creatinine 1.0 Glucose 97 Calcium 9.1 Cardiac Enzymes 04/10/25 Range/Units 12:30 Troponin I < 0.020 (0.0-0.045) ng/mL Liver Function 04/10/25 Range/Units 12:30 Total Bilirubin 0.6 (0.3-1.2) mg/dL AST 31 (0-34) U/L ALT 28 (10-49) U/L Alkaline Phosphatase 61 (46-116) U/L Albumin 4.6 (3.4-4.8) gm/dL Urine 04/10/25 Range/Units 13:46 Urine Color Lt-Yellow (Lt Yel-Yel) Urine Clarity Clear (Clear/Hazy) Urine pH 6.0 (5.0-7.0) Ur Specific [place] 1.025 (1.001-1.035) Urine Protein Negative (Neg - Trace) Urine Glucose (UA) Negative (Negative) Quality Measures Quality Measures VTE prophylaxis Advance care planning discussed with:: patient and sibling Medications Home Medications and Allergies Home Medications ?Medication ?Instructions ?Recorded ?Confirmed ?Type atenolol 25 mg tablet 25 mg PO BID 04/10/25 04/10/25 History Allergies Allergy/AdvReac Type Severity Reaction Status Date / Time codeine Allergy Unknown Verified 04/10/25 12:05 Sulfa (Sulfonamide Allergy Unknown Verified 04/10/25 12:05 Antibiotics) acetaminophen (From Vicodin) Allergy Nausea Verified 04/10/25 12:05 hydrocodone (From Vicodin) Allergy Nausea Verified 04/10/25 12:05 Visit Medications Acetaminophen (Acetaminophen 325 Mg Tablet) 650 mg PO Q6H PRN PRN Reason: PAIN SCALE 1-3 (mild Stop: 05/10/25 15:32 Aspirin (Aspirin Ec 81 Mg Tabec) 81 mg PO QDAY AIMEE Stop: 05/10/25 15:44 Heparin Sodium (Porcine) (Heparin Sod Inj 5000 Unit/Ml Vial) 5,000 unit SC Q12HR AIMEE Stop: 04/24/25 20:59 Sodium Chloride (Ns) 1,000 mls @ 75 mls/hr IV .[id number] AIMEE Stop: 04/11/25 04:49 Labetalol HCl (Labetalol Inj 5 Mg/Ml Vial 4 Ml) 10 mg IVP Q15M PRN PRN Reason: hypertension Ondansetron HCl (Ondansetron Inj 2 Mg/Ml Inj 2 Ml) 4 mg IVP Q4HR PRN PRN Reason: NAUSEA OR VOMITING Stop: 05/10/25 12:01 Sennosides (Senna Tablet) 1 tab PO QDAY PRN; Protocol PRN Reason: constipation Stop: 05/10/25 15:32 Discontinued Medications Aspirin (Aspirin Ec 81 Mg Tabec) 81 mg PO X1 ONE Stop: 04/10/25 13:32 Last Admin: 04/10/25 13:45 Dose: 81 mg Assessment & Plan Plan Patient is a 74-year-old female with a PMH of CAD (previous SD in 2006), and hypertension on atenolol who presented on 04/10/25 with a chief complaint of stroke-like symptoms. Patient was admitted for the work-up and management of stroke-like symptoms. #Stroke-like symptoms Initial 04/10 presentation: sudden-onset symptoms of dizziness, everything going black (clarified to be a disturbance in vision rather than loss of consciousness), throat tightening, a sensation of her tongue choking her, loss of speech, involuntary drooling and difficulty swallowing, and loss of balance (but did not fall) The episode lasted for about 30 minutes before mostly self-resolving (albeit with some residual speech difficulties), at which point she had her sister bring her to [facility] Physical exam at time of intake showed no neurological abnormalities except for some loss of sensation of the right side of V1 distribution and self-reported speech difficulties (which this card writer hand did not note by his own observation) but was otherwise WNL 04/[address] w/o contrast negative for acute hemorrhage, mass effect, or midline shift. 04/10 head/neck CTA negative for significant neck arterial stenoses and cerebral LVO or thrombus. In the ED, Tele-Neurology evaluated the patient to have an NIHSS of 0 and deemed her not to be a candidate for TNK administration due to lack of ongoing symptoms at the time. Dx: -04/10 brain MRI ordered, showed ___ -04/10 echo w/ bubble study ordered, showed ___ -Hemoglobin A1c ordered, showed ___ -Lipid panel ordered, showed ___ -TSH ordered, showed ___ -Orthostatic vitals ordered, showed ___ Rx: -Aspirin 81 mg PO QD -Neuro checks Q4HR -Continuous cardiac monitoring -Bedside swallow evaluation: ___ -DVT prophylaxis: Heparin 5K SC Q12HR -Head of bed elevation of 30 degrees -Maintain euglycemia and avoid hyperthermia with Acetaminophen PRN -Neurology consulted, appreciate recommendations #Hypertension 04/10 admission BP 164/83 On home atenolol 25 mg PO BID Rx: -Will consider restarting home antihypertensive medication after permissive hypertension period has ended per stroke rule out protocol Hospital Management: Disposition: Tele Diet: NPO (pending swallow screen) GI Prophylaxis: Not Indicated Bowel Prophylaxis: Senna PRN DVT Prophylaxis: Heparin CODE STATUS: Full Code I have examined the patient and conferred with my attending, Dr. Sanches, and my senior resident, Dr. Driver, regarding them. Samuel López, DO PGY-1 Internal Medicine Attending Provider Attestation/Addendum I have examined the patient, reviewed labs and imaging findings, discussed the case with the resident(s), and reviewed entered orders. I agree with the plan of care as outlined in this note, with these additional summaries/recommendations: After examination of the patient and review of the clinical data, I feel that this patient needs admission to the hospital for further treatment and evaluation. Patient is a 74-year-old female with a medical history of primary hypertension, dyslipidemia, and CAD presents to [facility] emergency department on 04/10/2025 with chief complaints of dysarthria, facial numbness, drooling, loss of consciousness and vision, and dizziness. Patient seen at bedside. She presented with likely syncope and strokelike symptoms. Stroke alert was called in the emergency room. Symptoms already improving/resolving at the time of my evaluation. CT head was negative for acute hemorrhage, mass effect or midline shift. CTA head and neck did not reveal any LVO or dissection. Teleneurology consulted who recommends CVA rule out and syncopal workup. We will order MRI brain and follow-up results when available. Start aspirin 81 mg p.o. daily and high intensity statin. Order vascular risk factors with A1c, lipid panel, and TSH. Physical therapy evaluation. Unclear etiology for patient's syncope. Will rule out cardiac etiology with echocardiogram to rule out any valvular abnormalities and monitor on telemetry for arrhythmia. Patient was noted to have mild sinus bradycardia on EKG although lower suspicion as etiology for patient's syncope. If bradycardia persists or worsens then we will consult cardiology. Order orthostatic vital signs. Hold home antihypertensive for now to allow permissive hypertension. Patient updated on the plan and in agreement. All questions answered to satisfaction. Please see residents note for additional details and management. Dr. Vreónica MD
[2025-04-10] MEDS: SODIUM CHLORIDE 0.9% 1000 ML 1,000 ML 75 ML IV (17:11)
[2025-04-10] MEDS: ACETAMINOPHEN 325 MG TABLET 650 MG PO (20:54)
[2025-04-10] MEDS: HEPARIN SOD INJ 5000 UNIT/ML VIAL SC (20:54)
[2025-04-11] VITALS (7 sets, daily range): BP systolic 130–179; BP diastolic 75–101; PULSE 47–76; RESP 12–19; TEMP 36–36.4; O2SAT 93–97
--- NOTE | 2025-04-11 | XR_ITS ---
Examinations: MRI Brain without intravenous contrast. MRA brain without intravenous contrast. MRA carotids without intravenous contrast 3-D vascular reconstructions Date and time of exam: April 11, 2025, 1516 hours Indication: Onset altered mental status beginning 10:00 a.m. this morning Technique: Multiple axial and sagittal images of the brain have been obtained MRA brain carotid images without contrast obtained, including 3-D postprocessing, vascular maximum intensity projection images Findings: Sellaturcica is not enlarged. The optic chiasm and infundibular stalk are not remarkable. Prepontine and interpeduncular cisterns are not enlarged. No localized enlargement of the medulla or kristan. Fourth ventricle and cerebellar tonsils normal in position. Subacute hemorrhage is not seen. Fourth ventricle is midline. Mass in the cerebellopontine angle region is not evident. 7th and 8th nerve complexes exhibits symmetry. Globes are symmetrical with no retro-orbital mass. Increased white matter signal moderate Diffusion-weighted images demonstrate small foci restricted diffusion in the right parietal lobe Mass-effect upon the ventricular system is not identified. MRA carotid images no significant carotid stenoses. MRA brain images no large vessel occlusions Impression: Small foci of restricted diffusion in the right parietal lobe most consistent with small acute infarcts No significant carotid stenoses No cerebral large vessel arterial occlusions
[2025-04-11 05:44] LABS: Basophils # (Auto) 0.0 Thou/mm3 (0.0-0.2); Basophils % (Auto) 0 % (0-2.5); Eosinophils # (Auto) 0.3 Thou/mm3 (0.0-0.5); Eosinophils % (Auto) 7 % (0-10); Hematocrit 41.9 % (36.0-46.0); Hemoglobin 13.9 g/dL (12.0-16.0); Immature Granulocytes Auto 0.00 Thou/mm3 (0.00-0.00); Lymphocytes # (Auto) 1.7 Thou/mm3 (1.0-4.8); Lymphocytes % (Auto) 34 % (10-50); Mean Corpuscular HGB Conc 33.2 g/dl (31.0-37.0); Mean Corpuscular Hemoglobin 30.7 pg (25.0-35.0); Mean Corpuscular Volume 93 fL (80-100); Monocytes # (Auto) 0.3 Thou/mm3 (0.0-0.8); Monocytes % (Auto) 7 % (0-12); Neutrophils # (Auto) 2.6 Thou/mm3 (1.8-7.7); Neutrophils % (Auto) 53 % (37-80); Nucleated Red Blood Cell # 0.00 Thou/mm3 (0.00-0.00); Nucleated Red Blood Cell % 0 /100 WBC (0); Platelet Count 234 Thou/mm3 (140-440); RDW Standard Deviation 48.5 fL (36.4-46.3); Red Blood Count 4.53 Miln/mm3 (4.00-5.20); White Blood Count 5.0 Thou/mm3 (3.6-11.0)
[2025-04-11 06:05] LABS: Glucose Estimated Average 97 mg/dL (80-131); Hemoglobin A1C 5.0 % Hgb (4.8-6.0)
[2025-04-11 06:11] LABS: Alanine Aminotransferase 22 U/L (10-49); Albumin, Serum 4.0 gm/dL (3.4-4.8); Albumin/Globulin Ratio 1.8 (1.2-2.2); Alkaline Phosphatase 53 U/L (46-116); Anion Gap 10 (7-16); Aspartate Amino Transferase 20 U/L (0-34); BUN/Creatinine Ratio 11 Ratio (12-20); Bilirubin,Total 0.7 mg/dL (0.3-1.2); Blood Urea Nitrogen 9 mg/dL (9-23); Calcium 8.8 mg/dL (8.3-10.6); Calcium (Corrected) 8.8 mg/dL (8.5-10.1); Carbon Dioxide 27.5 mMol/L (20.0-31.0); Cardiac Risk Estimate 5.1 RATIO (3.7-5.6); Chloride 107 mMol/L (98-107); Cholesterol 199 mg/dL (132-200); Creatinine (Component) 0.8 mg/dL (0.6-1.3); Estimated Creatinine Clearance 71.5 mL/min (>60); Globulin 2.2 gm/dL (2.3-3.5); Glucose 79 mg/dL (74-106); HDL Cholesterol 39 mg/dL (40-60); LDL Cholesterol,Calculated 128 mg/dL (0-130); Magnesium 2.1 mg/dL (1.6-2.6); Osmolality,Calculated 284 (275-295); Phosphorous 3.3 mg/dL (2.4-5.1); Potassium 3.8 mMol/L (3.4-5.1); Sodium 144 mMol/L (136-145); Thyroid Stimulating Hormone 1.41 uIU/mL (0.55-4.78); Total Protein 6.2 gm/dL (5.7-8.2); Triglycerides 161 mg/dL (30-150); eGFR > 60 See Note
[2025-04-11] MEDS: ASPIRIN EC 81 MG TABEC PO (08:59)
[2025-04-11] MEDS: HEPARIN SOD INJ 5000 UNIT/ML VIAL SC ×2 (08:59→20:27)
--- NOTE | 2025-04-11 09:16 | PCS.ST ---
Swallow Evaluation completed. See report for details. No dysphagia. Regular cardiac diet.
--- NOTE | 2025-04-11 10:00 | PC.SS ---
Patient Carolin Peñaloza is a 74 Year old female admitted for Presyncope, Stroke R/O. SS met with patient at bedside to discuss discharge plan and verify demographic information. Patient reports she lives at home with family. Patient reports her Daughter, Pratibha Carranza is her surrogate decision maker, . Patient reports that prior to admission she did not utilize any source of DME to assist with ambulation. Patient is able to complete all ADL's independently. [facility]. At time of discharge patient will return back home when medically cleared. Discharge plan: Home Next of kin: Daughter, Pratibha Carranza [phone]
--- NOTE | 2025-04-11 10:04 | PD.TNEUROPRO ---
Tele Neuro Progress Note Progress Note Date 04/11/25 [facility] TeleNeurology Consult Services Routine Consult Follow-Up Patient Name:???Carolin Peñaloza Date of :???1950 Identification Number:??? Date of Service:???04/11/2025 10:02:45 Diagnosis?R55 - Syncope (blackout, fainting, vasovagal attack) Impression Favoring syncopal episode, now back to baseline CT head without acute findings CT angio head and neck without acute findings Pending MRI of the brain and echo Neurology will continue to peripherally follow for above studies if without acute findings will sign off Subjective Patient has chronic trach. Nursing staff states some increased coughing. Patient states he is doing well. Otherwise difficult to understand. ? Examination Neuro Exam: General:?Alert,Awake Speech:?limited given trache and cough but can get some words across Face:?Symmetric: Motor Exam:?Moving all extremities antigravity no notable paresis ? This consult was conducted in real time using interactive audio and video technology. Patient was informed of the technology being used for this visit and agreed to proceed. Patient located in hospital and provider located at home/office setting. Telehealth Neurology consultation was provided. I spent 35 minutes providing telehealth care. This includes time spent for face to face visit via telemedicine, review of medical records, imaging studies and discussion of findings with providers, the patient and/or family. Dr Penny Fuchs [facility] For Inpatient follow-up with [facility] physician please call [facility] at . As we are not an outpatient service for any post hospital discharge needs please contact the hospital for assistance. If you have any questions for the [facility] physicians or need to reconsult for clinical or diagnostic changes please contact us via [facility] at Signature :David Fuchs Most Recent Vital Signs Last Vital Signs Temp 96.8 F 04/11/25 08:00 Pulse 51 L 04/11/25 08:00 Resp 19 04/11/25 08:00 BP 167/79 H 04/11/25 08:00 Pulse Ox 96 04/11/25 08:00 O2 Del Method Room Air 04/11/25 08:00 Laboratory-Coagulation Panel PT 11.0 Seconds (9.0-12.2) 04/10/25 12:30 INR 1.0 (0.9-1.3) 04/10/25 12:30 APTT 20.2 Seconds (22.0-36.0) L 04/10/25 12:30
--- NOTE | 2025-04-11 10:06 | PD.TNEUROPRO ---
Tele Neuro Progress Note Progress Note Date 04/11/25 [facility] TeleNeurology Consult Services Routine Consult Follow-Up Patient Name:???Carolin Peñaloza Date of :???1950 Identification Number:??? Date of Service:???04/11/2025 10:02:45 Diagnosis?R55 - Syncope (blackout, fainting, vasovagal attack) Impression Favoring syncopal episode, now baseline CT head without acute findings CT angio head and neck without acute findings Pending MRI of the brain and echo Neurology will continue to peripherally follow for above studies if without acute findings will sign off Subjective Patient has chronic trach. Nursing staff states some increased coughing. Patient states he is doing well. Otherwise difficult to understand. ? Examination Neuro Exam: General:?Alert,Awake Speech:?limited given trache and cough but can get some words across Face:?Symmetric: Motor Exam:?Moving all extremities antigravity no notable paresis ? This consult was conducted in real time using interactive audio and video technology. Patient was informed of the technology being used for this visit and agreed to proceed. Patient located in hospital and provider located at home/office setting. Telehealth Neurology consultation was provided. I spent 35 minutes providing telehealth care. This includes time spent for face to face visit via telemedicine, review of medical records, imaging studies and discussion of findings with providers, the patient and/or family. Dr Penny Fuchs [facility] For Inpatient follow-up with [facility] physician please call [facility] at . As we are not an outpatient service for any post hospital discharge needs please contact the hospital for assistance. If you have any questions for the [facility] physicians or need to reconsult for clinical or diagnostic changes please contact us via [facility] at Signature :David Fuchs Most Recent Vital Signs Last Vital Signs Temp 96.8 F 04/11/25 08:00 Pulse 51 L 04/11/25 08:00 Resp 19 04/11/25 08:00 BP 167/79 H 04/11/25 08:00 Pulse Ox 96 04/11/25 08:00 O2 Del Method Room Air 04/11/25 08:00 Laboratory-Coagulation Panel PT 11.0 Seconds (9.0-12.2) 04/10/25 12:30 INR 1.0 (0.9-1.3) 04/10/25 12:30 APTT 20.2 Seconds (22.0-36.0) L 04/10/25 12:30
--- NOTE | 2025-04-11 10:48 | PC.SS ---
SS follow up note; Patient is pending MRI, Echo and Neuro recs. Patient will discharge home when medically cleared.
--- NOTE | 2025-04-11 12:15 | PC.PT ---
PT eval only. Patient is xI with bed mobility, transfers, and ambulation. Patient is safe to ambulate to the bathroom and in the halls with no staff and no AD. RN made aware.
--- NOTE | 2025-04-11 13:22 | PD.RESPRO ---
Documentation for date of: 04/11/25 Subjective Subjective Interval history: No overnight events. Patient was examined at bedside; they appear A&Ox3 and in NAD. Vitals/labs today significant for BP 179/82, HR 52 (later improved), otherwise WNL. Physical exam was non-contributory and patient continues to deny experiencing any of the initial symptoms she had presented with. Orthostatic vitals showed over 20 mm Hg difference between supine BP and sitting BP, which is suggestive of orthostatic hypotension; it is possible that this may have contributed to patient's initial presyncopal episode. As per stroke protocol, patient will need the results of her brain MRI and bubble study before she is medically cleared for discharge. At this point in time, the suspicion for ischemic stroke is low due to self-resolution of her symptoms without any residual neurologic deficits. Her blood pressure remains uncontrolled however so lisinopril 20 mg PO QD and amlodipine 5 mg PO QD have been started. Atorvastatin 80 mg PO HS has also been started. Exam Vital Signs Temp Pulse Resp BP Pulse Ox O2 Del Method 96.8 F 51 L 19 167/79 H 96 Room Air 04/11/25 08:00 04/11/25 08:00 04/11/25 08:00 04/11/25 08:00 04/11/25 08:00 04/11/25 08:00 Narrative Exam General: WDWN obese female who is alert and in no acute distress. Skin: Warm, dry, intact, no obvious rash. Head: Normocephalic, atraumatic. Eye: Normal conjunctiva, PERRL. Throat: Oral mucosa moist. Cardiovascular: Innumerable varicosities of BLE, especially concentrated at the feet, anterior shins, and posterior calves. Regular rate and rhythm, no murmur, normal peripheral perfusion, no edema. Respiratory: Lungs are clear to auscultation, respirations non labored, no crackles, no wheezing. Gastrointestinal: Soft, nontender, non-distended. Psychiatric: Cooperative, appropriate affect. Neuro: Mental status: Alert, oriented, appropriately responding to commands. Speech/Language: Speech fluent, no word finding difficulty or paraphasic errors observed. Language-comprehension, repetition and naming intact. No dysarthria noted. Memory: Grossly recent and remote intact. Cranial Nerves: II: No visual deficits and visual gifford full to confrontation. Pupils 3-5 mm size BL round, reactive to light. III, IV, : EOMI, no nystagmus, no ptosis, no APD, smooth pursuit without saccadic intrusion, conjugate horizontal gaze intact. V: Gross sensation intact in V1, V2, and V3 distribution to crude touch. Jaw strength normal. VII: No facial asymmetry, able to smile symmetrically and BL good eye closure. VIII: Hearing intact in both ears per finger rubbing. IX, X: Symmetrical palate elevation, uvula in midline. XI: Symmetrical head rotation and shoulder shrug. IX, XII: Midline tongue protrusion. No fasciculations or atrophy noted. Sensory examination Crude touch in bilateral upper and lower extremity grossly intact. Motor examination No drift in bilateral upper extremity 5/5 strength in bilateral upper extremity 5/5 strength in bilateral lower extremity Coordination Buowwd-qz-rnai test and xuzy-av-bllm test performed without any difficulty. No dysmetria. Objective Labs 04/12/25 05:21 04/12/25 05:21 Labs: Laboratory Results - last 24 hr 04/10/25 04/10/25 04/11/25 13:46 14:15 04:30 WBC 7.9 5.0 RBC 4.56 4.53 Hgb 13.8 13.9 Hct 42.2 41.9 MCV 93 93 MCH 30.3 30.7 MCHC 32.7 33.2 RDW Std Deviation 48.5 H 48.5 H Plt Count 239 234 Neut % (Auto) 68 53 Lymph % (Auto) 23 34 [place] % (Auto) 6 7 Eos % (Auto) 2 7 Baso % (Auto) 0 0 Neut # (Auto) 5.4 2.6 Lymph # (Auto) 1.9 1.7 [place] # (Auto) 0.5 0.3 Eos # (Auto) 0.2 0.3 Baso # (Auto) 0.0 0.0 Immature Gran # (Auto) 0.02 H 0.00 Absolute Nucleated RBC 0.00 0.00 Immature Gran % 0 0 Nucleated RBC % 0 0 Sodium 144 Potassium 3.8 D Chloride 107 Carbon Dioxide 27.5 Anion Gap 10 BUN 9 Creatinine 0.8 Estim Creat Clear Calc 71.5 eGFR > 60 BUN/Creatinine Ratio 11 L Glucose [address] Glu mg/dL 97 Hemoglobin A1c 5.0 Calculated Osmolality 284 Calcium 8.8 Corrected Calcium 8.8 Phosphorus 3.3 Magnesium 2.1 Total Bilirubin 0.7 AST 20 ALT 22 Alkaline Phosphatase 53 Total Protein 6.2 Albumin 4.0 D Globulin 2.2 L Albumin/Globulin Ratio 1.8 Triglycerides 161 H Cholesterol 199 LDL Cholesterol, Calc 128 HDL Cholesterol 39 L Cholesterol/HDL Ratio 5.1 TSH 1.41 Ur Collection Type Clean Catch Urine Color Lt-Yellow Urine Clarity Clear Urine pH 6.0 Ur Specific [place] 1.025 Urine Protein Negative Urine Glucose (UA) Negative Urine Ketones Negative Urine Blood Negative Urine Nitrite Negative Urine Bilirubin Negative Urine Urobilinogen (Auto) Negative Ur Leukocyte Esterase Negative Urine RBC 1 Urine WBC 0 Ur Squamous Epith Cells < 1 Urine Bacteria None Ur Culture Indicated? Not Indicated Urine Opiates Screen Negative Urine Fentanyl Screen Negative Ur Barbiturates Screen Negative U Amphetamin/Meth Scrn Negative U Benzodiazepines Scrn Negative U Cocaine Metab Screen Negative U Marijuana (THC) Screen Negative Quality Measures Quality Measures VTE prophylaxis Advance care planning discussed with:: patient Assessment & Plan Assessment Current Active Medications: Generic Name Dose Route Start Last Admin Trade Name Freq PRN Reason Stop Dose Admin Acetaminophen 650 mg 04/10/25 15:33 04/10/25 20:54 Acetaminophen 325 Mg Tablet PO 05/10/25 15:32 650 mg Q6H PRN Administration PAIN SCALE 1-3 (mild Aspirin 81 mg 04/10/25 15:45 04/11/25 08:59 Aspirin Ec 81 Mg Tabec PO 05/10/25 15:44 81 mg QDAY AIMEE Administration Atorvastatin Calcium 80 mg 04/11/25 21:00 Atorvastatin Calcium 20 Mg Tablet PO 05/11/25 20:59 HS AIMEE Heparin Sodium (Porcine) 5,000 unit 04/10/25 21:00 04/11/25 08:59 Heparin Sod Inj 5000 Unit/Ml Vial SC 04/24/25 20:59 5,000 unit Q12HR AIMEE Administration Labetalol HCl 10 mg 04/10/25 12:02 Labetalol Inj 5 Mg/Ml Vial 4 Ml IVP Q15M PRN hypertension Ondansetron HCl 4 mg 04/10/25 12:02 Ondansetron Inj 2 Mg/Ml Inj 2 Ml IVP 05/10/25 12:01 Q4HR PRN NAUSEA OR VOMITING Sennosides 1 tab 04/10/25 15:33 Senna Tablet PO 05/10/25 15:32 QDAY PRN constipation Protocol Plan Patient is a 74-year-old female with a PMH of CAD (previous [place] in 2006), and hypertension on atenolol who presented on 04/10/25 with a chief complaint of stroke-like symptoms. Patient was admitted for the work-up and management of stroke-like symptoms. #Stroke-like symptoms Initial 04/10 presentation: sudden-onset symptoms of dizziness, everything going black (clarified to be a disturbance in vision rather than loss of consciousness), throat tightening, a sensation of her tongue choking her, loss of speech, involuntary drooling and difficulty swallowing, and loss of balance (but did not fall) The episode lasted for about 30 minutes before mostly self-resolving (albeit with some residual speech difficulties), at which point she had her sister bring her to [facility] Physical exam at time of intake showed no neurological abnormalities except for some loss of sensation of the right side of V1 distribution and self-reported speech difficulties (which this director underwriter sales did not note by his own observation) but was otherwise WNL 04/[address] w/o contrast negative for acute hemorrhage, mass effect, or midline shift. 04/10 head/neck CTA negative for significant neck arterial stenoses and cerebral LVO or thrombus. In the ED, Tele-Neurology evaluated the patient to have an NIHSS of 0 and deemed her not to be a candidate for TNK administration due to lack of ongoing symptoms at the time. Dx: -04/10 brain MRI ordered, showed ___ -04/10 echo w/ bubble study ordered, showed ___ -Hemoglobin A1c ordered, showed 5.0 -Lipid panel ordered, showed triglycerides 161, cholesterol 199, LDL 128, HDL 39 -TSH ordered, 1.41 -Orthostatic vitals ordered, showed over 20 mm Hg difference between supine BP and sitting BP, which is suggestive of orthostatic hypotension Rx: -Aspirin 81 mg PO QD -Atorvastatin 80 mg PO HS -Neuro checks Q4HR -Continuous cardiac monitoring -Bedside swallow evaluation: passed -DVT prophylaxis: Heparin 5K SC Q12HR -Head of bed elevation of 30 degrees -Maintain euglycemia and avoid hyperthermia with Acetaminophen PRN -Neurology consulted, appreciate recommendations #Hypertension 04/10 admission BP 164/83 On home atenolol 25 mg PO BID Now more than 24 hours s/p period of permissive hypertension per stroke protocol Rx: -Lisinopril 20 mg PO QD -Amlodipine 5 mg PO QD Hospital Management: Disposition: Tele Diet: Cardiac GI Prophylaxis: Not Indicated Bowel Prophylaxis: Senna PRN DVT Prophylaxis: Heparin CODE STATUS: Full Code I have examined the patient and conferred with my attending, Dr. Sanches, and my senior resident, Dr. Driver, regarding them. Samuel López DO PGY-1 Internal Medicine Attending Provider Attestation/Addendum I have examined the patient, reviewed labs and imaging findings, discussed the case with the resident(s), and reviewed entered orders. I agree with the plan of care as outlined in this note, with these additional summaries/recommendations: Patient is a 74-year-old female with a medical history of primary hypertension, dyslipidemia, and CAD presents to [facility] emergency department on 04/10/2025 with chief complaints of dysarthria, facial numbness, drooling, loss of consciousness and vision, and dizziness. Patient seen at bedside. No acute overnight events. Today patient reports she has had significant life stressors over the last year although no significant event yesterday prior to the development of her symptoms. Patient is pending MRI brain to rule out CVA. CT head was negative for acute hemorrhage, mass effect or midline shift. CTA head and neck did not reveal any LVO or dissection. Continue aspirin and statin therapy for now. LDL 128. Neurology following. Echocardiogram with bubble study taken and pending read. Patient completed PT and swallow evaluation. No further needs. Patient also endorses intermittent palpitations at time with likely syncopal event on admission. Orthostatic vital signs returned positive and patient was given fluids. Will sexual assault counselor patient on slow to rise text make and compression stockings. Patient also noted to have mild bradycardia which may be secondary to atenolol which we are holding for now. Given patient's bradycardia we will stop atenolol and adjust antihypertensive regimen. Patient updated on the plan and in agreement. Anticipate discharge in the next 24 to 48 hours. Please see residents note for additional details and management. Dr. Verónica MD
--- NOTE | 2025-04-11 14:40 | PC.NURSE ---
11:20: dr. López made aware pt showed bigeminy and PAC at 10:50
[2025-04-11] MEDS: ACETAMINOPHEN 325 MG TABLET 650 MG PO (20:27)
[2025-04-11] MEDS: ATORVASTATIN CALCIUM 20 MG TABLET 80 MG PO (20:27)
[2025-04-12] VITALS (7 sets, daily range): BP systolic 111–144; BP diastolic 69–86; PULSE 55–100; RESP 13–20; TEMP 36–36.7; O2SAT 94–97; BMI 32.1
[2025-04-12 06:36] LABS: Basophils # (Auto) 0.0 Thou/mm3 (0.0-0.2); Basophils % (Auto) 0 % (0-2.5); Eosinophils # (Auto) 0.3 Thou/mm3 (0.0-0.5); Eosinophils % (Auto) 7 % (0-10); Hematocrit 45.4 % (36.0-46.0); Hemoglobin 14.9 g/dL (12.0-16.0); Immature Granulocytes Auto 0.01 Thou/mm3 (0.00-0.00); Lymphocytes # (Auto) 1.4 Thou/mm3 (1.0-4.8); Lymphocytes % (Auto) 30 % (10-50); Mean Corpuscular HGB Conc 32.8 g/dl (31.0-37.0); Mean Corpuscular Hemoglobin 31.2 pg (25.0-35.0); Mean Corpuscular Volume 95 fL (80-100); Monocytes # (Auto) 0.4 Thou/mm3 (0.0-0.8); Monocytes % (Auto) 8 % (0-12); Neutrophils # (Auto) 2.5 Thou/mm3 (1.8-7.7); Neutrophils % (Auto) 54 % (37-80); Nucleated Red Blood Cell # 0.00 Thou/mm3 (0.00-0.00); Nucleated Red Blood Cell % 0 /100 WBC (0); Platelet Count 190 Thou/mm3 (140-440); RDW Standard Deviation 49.3 fL (36.4-46.3); Red Blood Count 4.78 Miln/mm3 (4.00-5.20); White Blood Count 4.7 Thou/mm3 (3.6-11.0)
[2025-04-12 06:50] LABS: Alanine Aminotransferase 21 U/L (10-49); Albumin, Serum 4.2 gm/dL (3.4-4.8); Albumin/Globulin Ratio 1.9 (1.2-2.2); Alkaline Phosphatase 50 U/L (46-116); Anion Gap 11 (7-16); Aspartate Amino Transferase 30 U/L (0-34); BUN/Creatinine Ratio 18 Ratio (12-20); Bilirubin,Total 0.7 mg/dL (0.3-1.2); Blood Urea Nitrogen 14 mg/dL (9-23); Calcium 8.9 mg/dL (8.3-10.6); Calcium (Corrected) 8.9 mg/dL (8.5-10.1); Carbon Dioxide 25.6 mMol/L (20.0-31.0); Chloride 106 mMol/L (98-107); Creatinine (Component) 0.8 mg/dL (0.6-1.3); Estimated Creatinine Clearance 71.1 mL/min (>60); Globulin 2.2 gm/dL (2.3-3.5); Glucose 86 mg/dL (74-106); Osmolality,Calculated 284 (275-295); Potassium 4.2 mMol/L (3.4-5.1); Sodium 143 mMol/L (136-145); Total Protein 6.4 gm/dL (5.7-8.2); eGFR > 60 See Note
[2025-04-12] MEDS: ASPIRIN EC 81 MG TABEC PO (08:30)
[2025-04-12] MEDS: HEPARIN SOD INJ 5000 UNIT/ML VIAL SC ×2 (08:31→20:43)
[2025-04-12] MEDS: ACETAMINOPHEN 325 MG TABLET 650 MG PO (08:39)
--- NOTE | 2025-04-12 09:38 | PD.TNEUROPRO ---
Tele Neuro Progress Note Most Recent Vital Signs Last Vital Signs Temp 98.1 F 04/12/25 08:00 Pulse 55 L 04/12/25 08:25 Resp 20 04/12/25 08:00 BP 111/76 04/12/25 08:25 Pulse Ox 97 04/12/25 08:00 O2 Del Method Room Air 04/12/25 08:00 Laboratory-Coagulation Panel PT 11.0 Seconds (9.0-12.2) 04/10/25 12:30 INR 1.0 (0.9-1.3) 04/10/25 12:30 APTT 20.2 Seconds (22.0-36.0) L 04/10/25 12:30
--- NOTE | 2025-04-12 11:29 | ESPR_ITS ---
Tele Neuro Progress Note Progress Note Date [facility] TeleNeurology Consult Services Routine Consult Follow-Up Patient Name:???Carolin Peñaloza Date of :???1950 Identification Number:??? Date of Service:???04/12/2025 09:21:50 Diagnosis?R55 - Syncope (blackout, fainting, vasovagal attack) ?I63.89 - Cerebrovascular accident (CVA) due to other mechanism ([facility]) Impression Acute infarct in the right parietal lobe, Although could be related to hypertension more favoring cardioembolic etiology - reported episode of chest pain, throat closing, difficulty with speaking with nonsensical speech and vision going black MRI brain as above CT head without acute findings CT angio head and neck without acute findings Echo with normal EF, no PFO Max SBP 160s LDL 128 A1c 5 Recommend ANTONIETTA, spoke with Dr. Sanches, will plan to get inpatient and will help with arranging. For Stroke Prevention Ensure the following: Antiplatelet therapy as follows Resume Aspirin 81 mg once daily Plavix 75 mg for total of 21 days (from Last known normal Resume high intensity statin, Atorvastatin 80 mg Goal LDL <70 and HgA1c<7% Strict blood sugar control Goal of SBP less than 130/80 Disposition recommendations per PT/OT/SLT PO recommendations per IOS ARCHITECT Disposition: Neurology will follow for ANTONIETTA. Outpatient considerations: Follow-up with primary care provider for stroke secondary prevention. Telemetry is for monitoring of A-fib if not found would need long-term cardiac monitoring as an outpatient. Subjective Patient doing well. Symptoms resolved. No acute complaints. Imaging I personally reviewed MRI images. Please note, remote physician workstations do not possess the same resolution, calibration, or diagnostic capabilities as hospital-based radiology reading stations. ? Examination 1A: Level of Consciousness - Alert; keenly responsive?+ 0 1B: Ask Month and Age - Both Questions Right?+ 0 1C: Blink Eyes & Squeeze Hands - Performs Both Tasks?+ 0 2: Test Horizontal Extraocular Movements - Normal?+ 0 3: Test Visual [place] - No Visual Loss?+ 0 4: Test Facial Palsy (Use Grimace if Obtunded) - Normal symmetry?+ 0 5A: Test Left Arm Motor Drift - No Drift for 10 Seconds?+ 0 5B: Test Right Arm Motor Drift - No Drift for 10 Seconds?+ 0 6A: Test Left Leg Motor Drift - No Drift for 5 Seconds?+ 0 6B: Test Right Leg Motor Drift - No Drift for 5 Seconds?+ 0 7: Test Limb Ataxia (FNF/Heel-Olivia) - No Ataxia?+ 0 8: Test Sensation - Normal; No sensory loss?+ 0 9: Test Language/Aphasia - Normal; No aphasia?+ 0 10: Test Dysarthria - Normal?+ 0 11: Test Extinction/Inattention - No abnormality?+ 0 NIHSS Score:?0 NIHSS Free Text :?diminished peripheral vision BL, baseline cataracts blurry vision ? This consult was conducted in real time using interactive audio and video technology. Patient was informed of the technology being used for this visit and agreed to proceed. Patient located in hospital and provider located at home/office setting. Telehealth Neurology consultation was provided. I spent 35 minutes providing telehealth care. This includes time spent for face to face visit via telemedicine, review of medical records, imaging studies and discussion of findings with providers, the patient and/or family. Dr Penny Fuchs [facility] For Inpatient follow-up with [facility] physician please call [facility] at . As we are not an outpatient service for any post hospital discharge needs please contact the hospital for assistance. If you have any questions for the [facility] physicians or need to reconsult for clinical or diagnostic changes please contact us via [facility] at Signature :?Penny Fuchs Most Recent Vital Signs Last Vital Signs Temp 98.1 F 04/12/25 08:00 Pulse 55 L 04/12/25 08:25 Resp 20 04/12/25 08:00 BP 111/76 04/12/25 08:25 Pulse Ox 97 04/12/25 08:00 O2 Del Method Room Air 04/12/25 08:00 Laboratory-Coagulation Panel PT 11.0 Seconds (9.0-12.2) 04/10/25 12:30 INR 1.0 (0.9-1.3) 04/10/25 12:30 APTT 20.2 Seconds (22.0-36.0) L 04/10/25 12:30
[2025-04-12] MEDS: CLOPIDOGREL BISULFATE 75 MG TABLET PO (12:56)
--- NOTE | 2025-04-12 14:01 | ESPR_ITS ---
Documentation for date of: 04/12/25 Subjective Subjective Interval history: No overnight events. Patient was examined at bedside; they appear A&Ox3 and in NAD. Vitals/labs today significant for BP 140/77 (later dropped to 111/76), otherwise WNL. Physical exam was non-contributory. 04/10 brain MRI resulted showing small foci of restricted diffusion in the right parietal lobe most consistent with small acute infarcts. 04/10 bubble study negative for PFO. Per Neurology recommendations, ANTONIETTA has been ordered due to concern for cardioembolic etiology and Cardiology (Dr. Roche) has been consulted for interpretation. Plavix has also been started per Neurology recommendations. Patient's lisinopril and amlodipine was held today due to low BP of 111/76; it is likely her initial hypertension was 2/2 acute ischemic stroke and therefore transient in nature. Exam Vital Signs Temp Pulse Resp BP Pulse Ox O2 Del Method 98.0 F 71 17 128/72 95 Room Air 04/12/25 12:04/12/25 12:04/12/25 12:04/12/25 12:04/12/25 12:04/12/25 12:00 Narrative Exam General: WDWN obese female who is alert and in no acute distress. Skin: Warm, dry, intact, no obvious rash. Head: Normocephalic, atraumatic. Eye: Normal conjunctiva, PERRL. Throat: Oral mucosa moist. Cardiovascular: Innumerable varicosities of BLE, especially concentrated at the feet, anterior shins, and posterior calves. Regular rate and rhythm, no murmur, normal peripheral perfusion, no edema. Respiratory: Lungs are clear to auscultation, respirations non labored, no crackles, no wheezing. Gastrointestinal: Soft, nontender, non-distended. Psychiatric: Cooperative, appropriate affect. Neuro: Mental status: Alert, oriented, appropriately responding to commands. Speech/Language: Speech fluent, no word finding difficulty or paraphasic errors observed. Language-comprehension, repetition and naming intact. No dysarthria noted. Memory: Grossly recent and remote intact. Cranial Nerves: II: No visual deficits and visual gifford full to confrontation. Pupils 3-5 mm size BL round, reactive to light. III, IV, : EOMI, no nystagmus, no ptosis, no APD, smooth pursuit without saccadic intrusion, conjugate horizontal gaze intact. V: Gross sensation intact in V1, V2, and V3 distribution to crude touch. Jaw strength normal. VII: No facial asymmetry, able to smile symmetrically and BL good eye closure. VIII: Hearing intact in both ears per finger rubbing. IX, X: Symmetrical palate elevation, uvula in midline. XI: Symmetrical head rotation and shoulder shrug. IX, XII: Midline tongue protrusion. No fasciculations or atrophy noted. Sensory examination Crude touch in bilateral upper and lower extremity grossly intact. Motor examination No drift in bilateral upper extremity 5/5 strength in bilateral upper extremity 5/5 strength in bilateral lower extremity Coordination [id number] test and [id number] test performed without any difficulty. No dysmetria. Objective Labs 04/13/25 04:28 04/13/25 04:28 Labs: Laboratory Results - last 24 hr 04/12/25 05:21 WBC 4.7 RBC 4.78 Hgb 14.9 Hct 45.4 MCV 95 MCH 31.2 MCHC 32.8 RDW Std Deviation 49.3 H Plt Count 190 D Neut % (Auto) 54 Lymph % (Auto) 30 Fisher % (Auto) 8 Eos % (Auto) 7 Baso % (Auto) 0 Neut # (Auto) 2.5 Lymph # (Auto) 1.4 Fisher # (Auto) 0.4 Eos # (Auto) 0.3 Baso # (Auto) 0.0 Immature Gran # (Auto) 0.01 H Absolute Nucleated RBC 0.00 Immature Gran % 0 Nucleated RBC % 0 Sodium 143 Potassium 4.2 Chloride 106 Carbon Dioxide 25.6 Anion Gap 11 BUN 14 Creatinine 0.8 Estim Creat Clear Calc 71.1 eGFR > 60 BUN/Creatinine Ratio 18 Glucose 86 Calculated Osmolality 284 Calcium 8.9 Corrected Calcium 8.9 Total Bilirubin 0.7 AST 30 ALT 21 Alkaline Phosphatase 50 Total Protein 6.4 Albumin 4.2 Globulin 2.2 L Albumin/Globulin Ratio 1.9 Quality Measures Quality Measures VTE prophylaxis Advance care planning discussed with:: patient Assessment & Plan Assessment Current Active Medications: Generic Name Dose Route Start Last Admin Trade Name Freq PRN Reason Stop Dose Admin Acetaminophen 650 mg 04/10/25 15:33 04/12/25 08:39 Acetaminophen 325 Mg Tablet PO 05/10/25 15:32 650 mg Q6H PRN Administration PAIN SCALE 1-3 (mild Aspirin 81 mg 04/10/25 15:45 04/12/25 08:30 Aspirin Ec 81 Mg Tabec PO 05/10/25 15:44 81 mg QDAY AIMEE Administration Atorvastatin Calcium 80 mg 04/11/25 21:00 04/11/25 20:27 Atorvastatin Calcium 20 Mg Tablet PO 05/11/25 20:59 80 mg HS AIMEE Administration Clopidogrel Bisulfate 75 mg 04/12/25 11:40 04/12/25 12:56 Clopidogrel Bisulfate 75 Mg Tablet PO 05/03/25 11:39 75 mg QDAY AIMEE Administration Heparin Sodium (Porcine) 5,000 unit 04/10/25 21:00 04/12/25 08:31 Heparin Sod Inj 5000 Unit/Ml Vial SC 04/24/25 20:59 5,000 unit Q12HR AIMEE Administration Labetalol HCl 10 mg 04/10/25 12:02 Labetalol Inj 5 Mg/Ml Vial 4 Ml IVP Q15M PRN hypertension Ondansetron HCl 4 mg 04/10/25 12:02 Ondansetron Inj 2 Mg/Ml Inj 2 Ml IVP 05/10/25 12:01 Q4HR PRN NAUSEA OR VOMITING Sennosides 1 tab 04/10/25 15:33 Senna Tablet PO 05/10/25 15:32 QDAY PRN constipation Protocol Plan Patient is a 74-year-old female with a PMH of CAD (previous MN in 2006), and hypertension on atenolol who presented on 04/10/25 with a chief complaint of stroke-like symptoms. Patient was admitted for the work-up and management of stroke-like symptoms. 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, concerning for cardioembolic etiology #Stroke-like symptoms, resolved #Orthostatic hypotension Initial 04/10 presentation: sudden-onset symptoms of dizziness, everything going black (clarified to be a disturbance in vision rather than loss of consciousness), throat tightening, a sensation of her tongue choking her, loss of speech, involuntary drooling and difficulty swallowing, and loss of balance (but did not fall) The episode lasted for about 30 minutes before mostly self-resolving (albeit with some residual speech difficulties), at which point she had her sister bring her to [facility] Physical exam at time of intake showed no neurological abnormalities except for some loss of sensation of the right side of V1 distribution and self-reported speech difficulties (which 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 04/10 head/neck CTA negative for significant neck arterial stenoses and cerebral LVO or thrombus. In the ED, Tele-Neurology evaluated the patient to have an NIHSS of 0 and deemed her not to be a candidate for TNK administration due to lack of ongoing symptoms at the time. Dx: -04/10 brain MRI ordered, showed small foci of restricted diffusion in the right parietal lobe most consistent with small acute infarcts. -04/10 echo w/ bubble study ordered, negative for PFO -04/11 ANTONIETTA ordered due to Neurology's concern for cardioembolic etiology, showed ___ (pending read by Dr. Roche) -Hemoglobin A1c ordered, showed 5.0 -Lipid panel ordered, showed triglycerides 161, cholesterol 199, LDL 128, HDL 39 -TSH ordered, 1.41 -Orthostatic vitals ordered, showed over 20 mm Hg difference between supine BP and sitting BP, which is suggestive of orthostatic hypotension Rx: -Aspirin 81 mg PO QD -Plavix 75 mg PO QD [04/12/25 - 05/03/25] -Atorvastatin 80 mg PO HS -Neuro checks Q4HR -Continuous cardiac monitoring -Bedside swallow evaluation: passed -DVT prophylaxis: Heparin 5K SC Q12HR -Head of bed elevation of 30 degrees -Maintain euglycemia and avoid hyperthermia with Acetaminophen PRN -Neurology consulted, appreciate recommendations #Hypertension, possibly transient and 2/2 acute ischemic stroke, improving 04/10 admission BP 164/83 On home atenolol 25 mg PO BID s/p 24 hour period of permissive HTN 04/12 BP noted to be 111/74, possibly suggesting patient's initial hypertension was 2/2 acute ischemic stroke and that she may not need as many antihypertensives as previously thought Rx: -Lisinopril 20 mg PO QD (HELD on 04/12 due to low BP) -Amlodipine 5 mg PO QD (HELD on 04/12 due to low BP) Hospital Management: Disposition: Tele Diet: Cardiac GI Prophylaxis: Not Indicated Bowel Prophylaxis: Senna PRN DVT Prophylaxis: Heparin CODE STATUS: Full Code I have examined the patient and conferred with my attending, Dr. Sanches, and my senior resident, Dr. Velasco, regarding them. Samuel López, PGY-1 Internal Medicine Attending Provider Attestation/Addendum I have examined the patient, reviewed labs and imaging findings, discussed the case with the resident(s), and reviewed entered orders. I agree with the plan of care as outlined in this note, with these additional summaries/recommendations: Patient is a 74-year-old female with a medical history of primary hypertension, dyslipidemia, and CAD presents to [facility] emergency department on 04/10/2025 with chief complaints of dysarthria, facial numbness, drooling, loss of consciousness and vision, and dizziness. Patient seen at bedside. No acute overnight events. She has no new symptoms to report today. Patient completed MRI brain which unfortunately did reveal a small foci of restricted diffusion in the right parietal lobe consistent with small acute infarcts. Echocardiogram completed and negative bubble study. Case discussed with neurology who recommends ANTONIETTA and suspicion for cardiac source of acute CVA. Will continue to monitor for arrhythmia on telemetry. Will consult in-house cardiology for ANTONIETTA. Continue DAPT therapy and high intensity statin. Continue to control vascular risk factors. LDL 128. Patient completed PT and swallow evaluation. No further needs. Patient updated on the plan and in agreement. All questions answered to satisfaction. Please see residents note for additional details and management. Dr. Verónica MD
[2025-04-12] MEDS: ATORVASTATIN CALCIUM 20 MG TABLET 80 MG PO (20:40)
[2025-04-13] VITALS: BP 135/84; PULSE 65; PULSE 85; RESP 24; TEMP 36.7; O2SAT 97
[2025-04-13 04:00] VITALS: BP 147/85; PULSE 62; RESP 19; TEMP 36.2; O2SAT 97
[2025-04-13 05:30] LABS: Basophils # (Auto) 0.0 Thou/mm3 (0.0-0.2); Basophils % (Auto) 0 % (0-2.5); Eosinophils # (Auto) 0.3 Thou/mm3 (0.0-0.5); Eosinophils % (Auto) 6 % (0-10); Hematocrit 44.0 % (36.0-46.0); Hemoglobin 14.5 g/dL (12.0-16.0); Immature Granulocytes Auto 0.02 Thou/mm3 (0.00-0.00); Lymphocytes # (Auto) 1.7 Thou/mm3 (1.0-4.8); Lymphocytes % (Auto) 30 % (10-50); Mean Corpuscular HGB Conc 33.0 g/dl (31.0-37.0); Mean Corpuscular Hemoglobin 30.4 pg (25.0-35.0); Mean Corpuscular Volume 92 fL (80-100); Monocytes # (Auto) 0.4 Thou/mm3 (0.0-0.8); Monocytes % (Auto) 8 % (0-12); Neutrophils # (Auto) 3.0 Thou/mm3 (1.8-7.7); Neutrophils % (Auto) 55 % (37-80); Nucleated Red Blood Cell # 0.00 Thou/mm3 (0.00-0.00); Nucleated Red Blood Cell % 0 /100 WBC (0); Platelet Count 251 Thou/mm3 (140-440); RDW Standard Deviation 47.8 fL (36.4-46.3); Red Blood Count 4.77 Miln/mm3 (4.00-5.20); White Blood Count 5.5 Thou/mm3 (3.6-11.0)
[2025-04-13 05:31] VITALS: BMI 31.7
[2025-04-13 05:51] LABS: Alanine Aminotransferase 18 U/L (10-49); Albumin, Serum 4.2 gm/dL (3.4-4.8); Albumin/Globulin Ratio 2.0 (1.2-2.2); Alkaline Phosphatase 52 U/L (46-116); Anion Gap 9 (7-16); Aspartate Amino Transferase 18 U/L (0-34); BUN/Creatinine Ratio 18 Ratio (12-20); Bilirubin,Total 0.7 mg/dL (0.3-1.2); Blood Urea Nitrogen 14 mg/dL (9-23); Calcium 9.7 mg/dL (8.3-10.6); Calcium (Corrected) 9.7 mg/dL (8.5-10.1); Carbon Dioxide 26.5 mMol/L (20.0-31.0); Chloride 107 mMol/L (98-107); Creatinine (Component) 0.8 mg/dL (0.6-1.3); Estimated Creatinine Clearance 70.7 mL/min (>60); Globulin 2.1 gm/dL (2.3-3.5); Glucose 89 mg/dL (74-106); Osmolality,Calculated 282 (275-295); Potassium 3.9 mMol/L (3.4-5.1); Sodium 142 mMol/L (136-145); Total Protein 6.3 gm/dL (5.7-8.2); eGFR > 60 See Note
[2025-04-13 08:00] VITALS: BP 153/80; PULSE 59; PULSE 70; RESP 16; TEMP 36.2; O2SAT 97
[2025-04-13] MEDS: ASPIRIN EC 81 MG TABEC PO (08:12)
[2025-04-13] MEDS: HEPARIN SOD INJ 5000 UNIT/ML VIAL SC ×2 (08:12→20:12)
[2025-04-13] MEDS: CLOPIDOGREL BISULFATE 75 MG TABLET PO (08:12)
--- NOTE | 2025-04-13 10:56 | PD.RESCONSUL ---
HPI Data of Consult Requesting Physician: Troy Sanches MD Admitting Provider: Troy Sanches MD Attending Provider: Troy Sanches MD Primary Care Provider: LULI Fuller Consult Narrative Reason for consult: Stroke/syncope History of present illness: Carolin is a 74-year-old female with past medical history of migraines, hypertension, broken heart syndrome in 2006, osteoarthritis, bilateral hearing aids, venous insufficiency presented to the ED with complaints of choking, slurring of speech, tongue slobbering. She describes yesterday around 10:00 AM while she was making coffee she felt sick to stomach, choking like sensation, tongue slobbering/drooling and she could not able to talk meaningfully at that time, all of the symptoms lasted for 30 minutes. She denies any similar complaints in the past. She endorses she had blackness in the both eyes during this episode for few seconds. She had a history of migraines which are mostly unilateral around the right eye but she complains she is having more dull type of headaches for which she uses Tylenol and Excedrin going on for a while which is different from the migraine headaches. She complains she awakened from the bed with the headaches. She denies any blurriness of vision, vomitings with these headaches. She endorses she is having a lot of dizzy episodes on and off for a while, occurring anytime while she is driving, while she is moving around the room and sometimes these episodes are accompanied with room spinning sensation, palpitations-heart racing sensations, and occasionally dizzy episodes are related to head turning. She also complains she had ringing sensation in the ears which is come down after she had placed on hearing aids. She endorses she is having occasional stabbing type of chest pain which lasts for few seconds to minutes, denies any aggravation on exertion, positional change, deep inspiration. At baseline she is feeling more fatigued and getting short of breath than usual. She denies any orthopnea, paroxysmal nocturnal dyspnea, abdominal distention. She had left lower limb varicosities which are progressively worsening. ED visit vitals and course: BP 164/83, pulse rate 64, respiratory 18, temperature 98.7, saturating 99% on room air. Currently on aspirin 81 mg, atorvastatin 80 mg, Plavix 75 mg. Teleneurology not recommended any thrombolytics-symptoms resolved by the time she came to the ED. CT head negative, brain MRI showing small foci of restricted diffusion on the right Parietal lobe consistent with small acute Infaracts Past medical history: History of coronary angiogram on 06/10 and she was told she had broken heart syndrome at the time, bilateral knee replacement, takes intra-articular steroids for osteoarthritis, sinus cyst surgery. Total hysterectomy for benign tumor in the uterus. Allergic history: Allergic to sulfonamides compounds. Family history: Triple bypass in her father, CHF history in mother who used to follow Dr. Roche until she was 95, maternal grandmother. 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 Eyes open, symmetrical, & clear CARDIO: Regular rhythm Noted. No Murmurs. PULM: No noted coughing/dyspnea CTA B/L, no R/W/R GI: Abdomen soft, nondistended,non Tender SKIN/MSK/EXT: No wounds/rashes/amputations, no pain on palpation. Pedal pulses present B/L. Varicosities observed around the left anterior presley and back NEURO: AAOx3, no focal neuro deficits, able to move all 4 extremities. Results Labs 04/13/25 04:28 04/13/25 04:28 Labs: Short CBC 04/13/25 Range/Units 04:28 WBC 5.5 (3.6-11.0) Thou/mm3 Hgb 14.5 (12.0-16.0) g/dL Hct 44.0 (36.0-46.0) % Plt Count 251 D (140-440) Thou/mm3 BMP 04/13/25 04:28 Sodium 142 Potassium 3.9 Chloride 107 Carbon Dioxide 26.5 BUN 14 Creatinine 0.8 Glucose 89 Calcium 9.7 Liver Function 04/13/25 Range/Units 04:28 Total Bilirubin 0.7 (0.3-1.2) mg/dL AST 18 (0-34) U/L ALT 18 (10-49) U/L Alkaline Phosphatase 52 (46-116) U/L Albumin 4.2 (3.4-4.8) gm/dL Quality Measures Quality Measures VTE prophylaxis Advance care planning discussed with:: patient Medications Home Medications and Allergies Home Medications ?Medication ?Instructions ?Recorded ?Confirmed ?Type atenolol 25 mg tablet 25 mg PO BID 04/10/25 04/10/25 History Allergies Allergy/AdvReac Type Severity Reaction Status Date / Time codeine Allergy Unknown Verified 04/10/25 12:05 Sulfa (Sulfonamide Allergy Unknown Verified 04/10/25 12:05 Antibiotics) acetaminophen (From Vicodin) Allergy Nausea Verified 04/10/25 12:05 hydrocodone (From Vicodin) Allergy Nausea Verified 04/10/25 12:05 Visit Medications Acetaminophen (Acetaminophen 325 Mg Tablet) 650 mg PO Q6H PRN PRN Reason: PAIN SCALE 1-3 (mild Stop: 05/10/25 15:32 Last Admin: 04/12/25 08:39 Dose: 650 mg Aspirin (Aspirin Ec 81 Mg Tabec) 81 mg PO QDAY [facility] Stop: 05/10/25 15:44 Last Admin: 04/13/25 08:12 Dose: 81 mg Atorvastatin Calcium (Atorvastatin Calcium 20 Mg Tablet) 80 mg PO HS AIMEE Stop: 05/11/25 20:59 Last Admin: 04/12/25 20:40 Dose: 80 mg Clopidogrel Bisulfate (Clopidogrel Bisulfate 75 Mg Tablet) 75 mg PO QDAY AIMEE Stop: 05/03/25 11:39 Last Admin: 04/13/25 08:12 Dose: 75 mg Heparin Sodium (Porcine) (Heparin Sod Inj 5000 Unit/Ml Vial) 5,000 unit SC Q12HR AIEME Stop: 04/24/25 20:59 Last Admin: 04/13/25 08:12 Dose: 5,000 unit Labetalol HCl (Labetalol Inj 5 Mg/Ml Vial 4 Ml) 10 mg IVP Q15M PRN PRN Reason: hypertension Ondansetron HCl (Ondansetron Inj 2 Mg/Ml Inj 2 Ml) 4 mg IVP Q4HR PRN PRN Reason: NAUSEA OR VOMITING Stop: 05/10/25 12:01 Sennosides (Senna Tablet) 1 tab PO QDAY PRN; Protocol PRN Reason: constipation Stop: 05/10/25 15:32 Discontinued Medications Amlodipine Besylate (Amlodipine Besylate 5 Mg Tablet) 5 mg PO QDAY AIMEE Stop: 05/11/25 14:29 Last Admin: 04/12/25 08:25 Dose: Not Given Aspirin (Aspirin Ec 81 Mg Tabec) 81 mg PO X1 ONE Stop: 04/10/25 13:32 Last Admin: 04/10/25 13:45 Dose: 81 mg Sodium Chloride (Ns) 1,000 mls @ 75 mls/hr IV .[id number] AIMEE Stop: 04/11/25 04:49 Last Admin: 04/10/25 17:11 Dose: 75 mls/hr Lisinopril (Lisinopril 20 Mg Tablet) 20 mg PO QDAY AIMEE Stop: 05/11/25 14:29 Last Admin: 04/12/25 08:25 Dose: Not Given Assessment & Plan Plan Carolin is a 74-year-old female with past medical history of migraines, hypertension, broken heart syndrome in 2006, osteoarthritis, bilateral hearing aids, venous insufficiency presented to the ED with complaints of choking, slurring of speech, tongue slobbering. She was admitted for stroke workup and was consulted cardiology for stroke/syncope workup. # Acute stroke?right parietal lobe small acute infarcts # Presyncope # Atypical chest pain # Palpitations and dizziness She had symptoms of slurring of speech, drooling, choking, all of the symptoms lasted for 30 minutes. She also had cloudiness/blackness of her vision. CT head negative for any hemorrhage, infract. CTA neck showing no significant occlusion MRI showing small foci of restricted diffusion on the right Parietal lobe consistent with small acute Infaracts. She was started on aspirin, Plavix, high-dose atorvastatin. Echo on 04/12 showing normal left ventricle size, mild LVH and ejection fraction is 55-60%. grade I diastolic dysfunction. Estimated RVSP is 22 mmHg. There is mild mitral valve stenosis and mild regurgitation. Mild MAC.There is trace tricuspid valve regurgitation. The left atrium is mildly enlarged. EKG looks normal sinus rhythm with heart rate around 58 on 04/12.CTA Head negative for any occlusion. She had symptoms of palpitations, dizziness going on for a while. She had a history of hypertension but no history of atrial fibrillation. Management: - She does not need to an ANTONIETTA as stroke involved involved only one cerebral artery territory and it does not appear to be embolic and she does not have any Atrial fibrillation. Unlikely PFO or ASD as a cause of initial stroke after the age of 74. -Needs Holter monitoring to rule out any abnormal rhythms or arrhythmias predisposing to stroke Ortho syncopal episodes. -For her sharp atypical chest pain she also needs stress test as outpatient.. -Keep potassium above 4 and magnesium about 2. -Can start on lisinopril 10 mg after her blood pressure stabilizes and at discharge. ?Continue the stroke workup and management - Can discharge and needs outpatient workup for her syncopal episodes to rule out any cardiac etiology.Recomended cardiology clinic visit after discharge to work up for any Cardiac etiology of syncope. # Hyperlipidemia Her triglycerides 161, total cholesterol 199, LDL 128, 39. A1c 5 TSH 1.4 ?She needs to be starting on atorvastatin 40 mg at home for her better lipid management. # Hypertension ?Can start on lisinopril 10 mg after her blood pressure stabilizes and during discharge. Management of rest of the medical conditions as per primary team and other consultants. Thank you for the consult and allowing me to participate in the care of the patient. Cardiology will continue to follow. Discussed this case with Dr. Kaley Sawyer MD PGY1 Attending Provider Attestation/Addendum I have personally seen and examined the patient separately on the above date of service and discussed the plan of care with the resident. I reviewed the resident Dr. Hector Sawyer consultation progress note and agree with the resident findings and plan in the note above and have also edited the documentation to reflect my findings and plan. J Luis Roche M.D. Interventional Cardiology
[2025-04-13 12:00] VITALS: BP 145/86; PULSE 69; PULSE 74; RESP 20; TEMP 36.2; O2SAT 96
--- NOTE | 2025-04-13 14:24 | PD.RESPRO ---
Documentation for date of: 04/13/25 Subjective Subjective Interval history: No acute events overnight.?Patient seen and examined at bedside this AM, pleasant and conversational.?Patient reports no recurrence of initial symptoms as when she came in, no speech difficulty, vision changes, drooling, or difficulty swallowing. Patient remains at her baseline with no deficits. Consulted Cardiology for ANTONIETTA as per recommendations of TeleNeuro to evaluate for cardioembolic source of the right parietal lobe infarcts diagnosed this admission. Will likely be completed on Monday. Labs and vitals were reviewed and within normal limits.?No further complaints at this time. Review of systems otherwise negative except what is mentioned above. Exam Vital Signs Temp Pulse Resp BP Pulse Ox O2 Del Method 97.2 F 69 20 145/86 H 96 Room Air 04/13/25 12:00 04/13/25 12:00 04/13/25 12:00 04/13/25 12:00 04/13/25 12:00 04/13/25 12:00 Narrative Exam Physical Exam General: Awake and in no acute distress. Conversational and non-toxic appearing. HEENT: Normocephalic, atraumatic, mucous membranes moist. Heart: Regular rate and rhythm, normal S1 and S2, no murmurs. Lungs: Clear to auscultation with no wheezing or crackles. Abdomen: Soft, nondistended, nontender, positive bowel sounds. ?No guarding or rebound tenderness. Neurologic: Alert and oriented x3, no gross neurological deficit, and patient able to move all 4 extremities. Extremities: No edema. Innumerable veinous varicosities of BLE, especially concentrated at the feet, anterior shins, and posterior calves. Skin: No rash or ecchymoses. Objective Labs 04/14/25 04:17 04/14/25 04:17 Labs: Laboratory Results - last 24 hr 04/13/25 04:28 WBC 5.5 RBC 4.77 Hgb 14.5 Hct 44.0 MCV 92 MCH 30.4 MCHC 33.0 RDW Std Deviation 47.8 H Plt Count 251 D Neut % (Auto) 55 Lymph % (Auto) 30 [place] % (Auto) 8 Eos % (Auto) 6 Baso % (Auto) 0 Neut # (Auto) 3.0 Lymph # (Auto) 1.7 [place] # (Auto) 0.4 Eos # (Auto) 0.3 Baso # (Auto) 0.0 Immature Gran # (Auto) 0.02 H Absolute Nucleated RBC 0.00 Immature Gran % 0 Nucleated RBC % 0 Sodium 142 Potassium 3.9 Chloride 107 Carbon Dioxide 26.5 Anion Gap 9 BUN 14 Creatinine 0.8 Estim Creat Clear Calc 70.7 eGFR > 60 BUN/Creatinine Ratio 18 Glucose 89 Calculated Osmolality 282 Calcium 9.7 Corrected Calcium 9.7 Total Bilirubin 0.7 AST 18 ALT 18 Alkaline Phosphatase 52 Total Protein 6.3 Albumin 4.2 Globulin 2.1 L Albumin/Globulin Ratio 2.0 Quality Measures Quality Measures VTE prophylaxis Advance care planning discussed with:: patient Assessment & Plan Assessment Current Active Medications: Generic Name Dose Route Start Last Admin Trade Name Freq PRN Reason Stop Dose Admin Acetaminophen 650 mg 04/10/25 15:33 04/12/25 08:39 Acetaminophen 325 Mg Tablet PO 05/10/25 15:32 650 mg Q6H PRN Administration PAIN SCALE 1-3 (mild Aspirin 81 mg 04/10/25 15:45 04/13/25 08:12 Aspirin Ec 81 Mg Tabec PO 05/10/25 15:44 81 mg QDAY AIMEE Administration Atorvastatin Calcium 80 mg 04/11/25 21:00 04/12/25 20:40 Atorvastatin Calcium 20 Mg Tablet PO 05/11/25 20:59 80 mg HS AIMEE Administration Clopidogrel Bisulfate 75 mg 04/12/25 11:40 04/13/25 08:12 Clopidogrel Bisulfate 75 Mg Tablet PO 05/03/25 11:39 75 mg QDAY AIMEE Administration Heparin Sodium (Porcine) 5,000 unit 04/10/25 21:00 04/13/25 08:12 Heparin Sod Inj 5000 Unit/Ml Vial SC 04/24/25 20:59 5,000 unit Q12HR AIMEE Administration Labetalol HCl 10 mg 04/10/25 12:02 Labetalol Inj 5 Mg/Ml Vial 4 Ml IVP Q15M PRN hypertension Ondansetron HCl 4 mg 04/10/25 12:02 Ondansetron Inj 2 Mg/Ml Inj 2 Ml IVP 05/10/25 12:01 Q4HR PRN NAUSEA OR VOMITING Sennosides 1 tab 04/10/25 15:33 Senna Tablet PO 05/10/25 15:32 QDAY PRN constipation Protocol Plan Patient is a 74-year-old female with a PMH of CAD (previous [place] in 2006), and hypertension on atenolol who presented on 04/10/25 with a chief complaint of stroke-like symptoms. Patient was admitted for the work-up and management of stroke-like symptoms. 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, concerning for cardioembolic etiology #Stroke-like symptoms, resolved Initial 04/10 presentation: sudden-onset symptoms of dizziness, everything going black (clarified to be a disturbance in vision rather than loss of consciousness), throat tightening, a sensation of her tongue choking her, loss of speech, involuntary drooling and difficulty swallowing, and loss of balance (but did not fall) The episode lasted for about 30 minutes before mostly self-resolving (albeit with some residual speech difficulties), at which point she had her sister bring her to [facility] Physical exam at time of intake showed no neurological abnormalities except for some loss of sensation of the right side of V1 distribution and self-reported speech difficulties (which this technical writer did not note by his own observation) but was otherwise WNL 04/[address] w/o contrast negative for acute hemorrhage, mass effect, or midline shift. 04/10 head/neck CTA negative for significant neck arterial stenoses and cerebral LVO or thrombus. In the ED, Tele-Neurology evaluated the patient to have an NIHSS of 0 and deemed her not to be a candidate for TNK administration due to lack of ongoing symptoms at the time. Dx: -04/10 brain MRI ordered, showed small foci of restricted diffusion in the right parietal lobe most consistent with small acute infarcts. -04/10 echo w/ bubble study ordered, negative for PFO -04/11 ANTONIETTA ordered due to Neurology's concern for cardioembolic etiology, showed ___ (pending read by Dr. Roche) -Hemoglobin A1c ordered, showed 5.0 -Lipid panel ordered, showed triglycerides 161, cholesterol 199, LDL 128, HDL 39 -TSH ordered, 1.41 -Bedside swallow evaluation: passed Rx: -Aspirin 81 mg PO QD -Plavix 75 mg PO QD [04/12/25 - 05/03/25] -Atorvastatin 80 mg PO HS -Neuro checks Q4HR -Continuous cardiac monitoring -DVT prophylaxis: Heparin 5K SC Q12HR -Cardiology consulted for ANTONIETTA, appreciate recommendations -Neurology consulted, appreciate recommendations #Orthostatic hypotension, positive There was question whether patient's presenting symptoms were suggestive of syncope or presyncope. 04/10 Orthostatic vitals showed over 20 mm Hg difference between supine BP 163/76 and sitting BP 139/87, which is suggestive of orthostatic hypotension. TTE normal EF 55-60% and grade 1 diastolic dysfunction -Home atenolol is held -Encourage oral hydration -Transition from different postures slowly #Hypertension 04/10 admission BP 164/83, possible compensatory secondary to stroke On home atenolol 25 mg PO BID - currently held due to orthostatic hypotension and concern for syncope, patient additionally bradycardic Patient was started on amlodipine 5 mg qday and lisinopril 20 mg qday in the hospital, lisinopril then stopped due to normotension Rx: -Amlodipine 5 mg qday Hospital Management: Disposition: Tele Diet: Cardiac GI Prophylaxis: Not Indicated Bowel Prophylaxis: Senna PRN DVT Prophylaxis: Heparin CODE STATUS: Full Code Patient plan of care was discussed with the attending physician, Dr. Sanches. Briana Driver, PGY-3 Attending Provider Attestation/Addendum I have examined the patient, reviewed labs and imaging findings, discussed the case with the resident(s), and reviewed entered orders. I agree with the plan of care as outlined in this note, with these additional summaries/recommendations: Patient is a 74-year-old female with a medical history of primary hypertension, dyslipidemia, and CAD presents to [facility] emergency department on 04/10/2025 with chief complaints of dysarthria, facial numbness, drooling, loss of consciousness and vision, and dizziness. Patient seen at bedside. No acute overnight events. She has no new symptoms to report today. Patient reports she occasionally feels palpitations. She denies feeling any palpitations while being hospitalized. Patient completed MRI brain which unfortunately did reveal a small foci of restricted diffusion in the right parietal lobe consistent with small acute infarcts. Echocardiogram completed and negative bubble study. Case discussed with neurology who recommends ANTONIETTA and suspicion for cardiac source of acute CVA. Will continue to monitor for arrhythmia on telemetry. Will consult in-house cardiology for ANTONIETTA. Continue DAPT therapy and high intensity statin. Continue to control vascular risk factors. LDL 128. Patient completed PT and swallow evaluation. No further needs. Patient updated on the plan and in agreement. All questions answered to satisfaction. Please see residents note for additional details and management. Dr. Verónica MD
[2025-04-13 16:00] VITALS: BP 143/92; PULSE 82; PULSE 83; RESP 17; TEMP 36.4; O2SAT 95
[2025-04-13 20:00] VITALS: BP 121/68; PULSE 71; PULSE 75; RESP 20; TEMP 36.2; O2SAT 96
[2025-04-13] MEDS: ATORVASTATIN CALCIUM 20 MG TABLET 80 MG PO (20:11)
--- NOTE | 2025-04-13 23:33 | PD.VPROG1 ---
Telemedicine visit statement This visit was conducted with the use of interactive audio and video telecommunications system that permits real time communication between the patient and the provider. Patient's verbal consent for virtual visit was obtained on 04/13/25 at 2333. Documentation for date of: 04/13/25 Subjective Subjective Interval history: Patient is in telemetry, no recurrence or new symptoms reported. Waiting for transesophageal echocardiogram by cardiology. Virtual exam Vital Signs Temp Pulse Resp BP Pulse Ox O2 Del Method 97.1 F 75 20 121/68 96 Room Air 04/13/25 20:00 04/13/25 20:00 04/13/25 20:00 04/13/25 20:00 04/13/25 20:00 04/13/25 20:00 Objective Labs 04/13/25 04:28 04/13/25 04:28 Labs: Laboratory Results - last 24 hr 04/13/25 04:28 WBC 5.5 RBC 4.77 Hgb 14.5 Hct 44.0 MCV 92 MCH 30.4 MCHC 33.0 RDW Std Deviation 47.8 H Plt Count 251 D Neut % (Auto) 55 Lymph % (Auto) 30 [place] % (Auto) 8 Eos % (Auto) 6 Baso % (Auto) 0 Neut # (Auto) 3.0 Lymph # (Auto) 1.7 [place] # (Auto) 0.4 Eos # (Auto) 0.3 Baso # (Auto) 0.0 Immature Gran # (Auto) 0.02 H Absolute Nucleated RBC 0.00 Immature Gran % 0 Nucleated RBC % 0 Sodium 142 Potassium 3.9 Chloride 107 Carbon Dioxide 26.5 Anion Gap 9 BUN 14 Creatinine 0.8 Estim Creat Clear Calc 70.7 eGFR > 60 BUN/Creatinine Ratio 18 Glucose 89 Calculated Osmolality 282 Calcium 9.7 Corrected Calcium 9.7 Total Bilirubin 0.7 AST 18 ALT 18 Alkaline Phosphatase 52 Total Protein 6.3 Albumin 4.2 Globulin 2.1 L Albumin/Globulin Ratio 2.0 Assessment & Plan Problem List (1) Stroke-like symptom: Status: Acute Assessment and plan: MRI brain showed Small foci of restricted diffusion in the right parietal lobe most consistent with small acute infarcts; No significant carotid stenoses; No cerebral large vessel arterial occlusions Transesophageal echocardiogram: Pending Continue with dual antiplatelet therapy for 21 days with statin followed by Plavix alone for prophylaxis.
[2025-04-14] VITALS (20 sets, daily range): BP systolic 113–159; BP diastolic 64–96; PULSE 64–90; RESP 14–26; TEMP 36–36.8; O2SAT 94–99; BMI 31.7; BMI 31.8
[2025-04-14] MEDS: ACETAMINOPHEN 325 MG TABLET 650 MG PO ×2 (05:17→20:12)
[2025-04-14 05:41] LABS: Basophils # (Auto) 0.0 Thou/mm3 (0.0-0.2); Basophils % (Auto) 0 % (0-2.5); Eosinophils # (Auto) 0.4 Thou/mm3 (0.0-0.5); Eosinophils % (Auto) 6 % (0-10); Hematocrit 43.6 % (36.0-46.0); Hemoglobin 14.6 g/dL (12.0-16.0); Immature Granulocytes Auto 0.02 Thou/mm3 (0.00-0.00); Lymphocytes # (Auto) 1.4 Thou/mm3 (1.0-4.8); Lymphocytes % (Auto) 25 % (10-50); Mean Corpuscular HGB Conc 33.5 g/dl (31.0-37.0); Mean Corpuscular Hemoglobin 30.9 pg (25.0-35.0); Mean Corpuscular Volume 92 fL (80-100); Monocytes # (Auto) 0.4 Thou/mm3 (0.0-0.8); Monocytes % (Auto) 8 % (0-12); Neutrophils # (Auto) 3.4 Thou/mm3 (1.8-7.7); Neutrophils % (Auto) 60 % (37-80); Nucleated Red Blood Cell # 0.00 Thou/mm3 (0.00-0.00); Nucleated Red Blood Cell % 0 /100 WBC (0); Platelet Count 266 Thou/mm3 (140-440); RDW Standard Deviation 48.4 fL (36.4-46.3); Red Blood Count 4.72 Miln/mm3 (4.00-5.20); White Blood Count 5.7 Thou/mm3 (3.6-11.0)
[2025-04-14 05:57] LABS: Alanine Aminotransferase 28 U/L (10-49); Albumin, Serum 4.3 gm/dL (3.4-4.8); Albumin/Globulin Ratio 2.0 (1.2-2.2); Alkaline Phosphatase 51 U/L (46-116); Anion Gap 11 (7-16); Aspartate Amino Transferase 32 U/L (0-34); BUN/Creatinine Ratio 19 Ratio (12-20); Bilirubin,Total 0.7 mg/dL (0.3-1.2); Blood Urea Nitrogen 15 mg/dL (9-23); Calcium 9.1 mg/dL (8.3-10.6); Calcium (Corrected) 9.1 mg/dL (8.5-10.1); Carbon Dioxide 26.3 mMol/L (20.0-31.0); Chloride 105 mMol/L (98-107); Creatinine (Component) 0.8 mg/dL (0.6-1.3); Estimated Creatinine Clearance 70.7 mL/min (>60); Globulin 2.2 gm/dL (2.3-3.5); Glucose 95 mg/dL (74-106); Osmolality,Calculated 283 (275-295); Potassium 4.1 mMol/L (3.4-5.1); Sodium 142 mMol/L (136-145); Total Protein 6.5 gm/dL (5.7-8.2); eGFR > 60 See Note
[2025-04-14] MEDS: HEPARIN SOD INJ 5000 UNIT/ML VIAL SC ×2 (08:37→20:11)
[2025-04-14] MEDS: CLOPIDOGREL BISULFATE 75 MG TABLET PO (08:38)
[2025-04-14] MEDS: ASPIRIN EC 81 MG TABEC PO (08:38)
--- NOTE | 2025-04-14 11:12 | ESPR_ITS ---
<Statement entered by Gil Davis MD - 04/14/25 15:42> Patient was examined and case was reviewed with team including attending physician. Note reviewed, I agree with most of its contents and agree with the patient's care. Patient seen today at the bedside found awake, alert, orientedx3. No overnight events reported. Vital signs and labs reviewed. Patient currently pending ANTONIETTA with Cardiology services to evaluate for possible cardioembolic etiology for right parietal ischemic infarcts. Will continue to follow up and possible discharge in the next 24-48hours. Case discussed with my attending Dr. Verónica Davis MD PGY-2 Disclaimer: Despite multiple revisions, due to the dictation software being used, the document bellow may not be free of grammatical errors including phonetic/typographic errors. However, this does not deter from our commitment to providing health care in the patient's best interest in mind. Documentation for date of: 04/14/25 Subjective Subjective Interval history: No acute events occurred overnight. Patient was evaluated at the bedside this morning and reports no recurrence of the initial symptoms that brought her in, including no speech difficulties, vision changes, drooling, or swallowing issues. She is currently at her baseline, with no neurological deficits observed. Patient reports experiencing intermittent episodes of sharp pain on the left side of her chest, just above the left breast, which have been occurring for nearly a year. She describes these episodes as varying in duration, with the longest lasting approximately 30 to 40 minutes. A similar episode occurred this morning prior to breakfast but it resolved quickly. Patient notified the nurse, and her vital signs remained stable at that time. Telemetry was reviewed, and no abnormal activity was noted. Plan for ANTONIETTA today. Exam Vital Signs Temp Pulse Resp BP Pulse Ox O2 Del Method 96.8 F 70 17 137/84 H 94 L Room Air 04/14/25 08:00 04/14/25 08:38 04/14/25 08:00 04/14/25 08:38 04/14/25 08:00 04/14/25 08:00 Narrative Exam Physical Exam General: Awake and in no acute distress. Conversational and non-toxic appearing. HEENT: Normocephalic, atraumatic, mucous membranes moist. Heart: Regular rate and rhythm, no murmurs. Non-labored respirations, symmetric chest rise, no use of accessory muscles. Lungs: Clear to auscultation with no wheezing or crackles. Abdomen: Soft, nondistended, nontender. No guarding or rebound tenderness. Neurologic: Alert and oriented x3, no gross neurological deficit, and patient able to move all 4 extremities. Extremities: No edema. Innumerable veinous varicosities of BLE, especially concentrated at the feet, anterior shins, and posterior calves. Skin: No rash or ecchymoses. Psychiatric: Cooperative, appropriate mood and affect. Objective Labs 04/15/25 04:52 04/15/25 04:52 Labs: Laboratory Results - last 24 hr 04/14/25 04:17 WBC 5.7 RBC 4.72 Hgb 14.6 Hct 43.6 MCV 92 MCH 30.9 MCHC 33.5 RDW Std Deviation 48.4 H Plt Count 266 Neut % (Auto) 60 Lymph % (Auto) 25 [place] % (Auto) 8 Eos % (Auto) 6 Baso % (Auto) 0 Neut # (Auto) 3.4 Lymph # (Auto) 1.4 [place] # (Auto) 0.4 Eos # (Auto) 0.4 Baso # (Auto) 0.0 Immature Gran # (Auto) 0.02 H Absolute Nucleated RBC 0.00 Immature Gran % 0 Nucleated RBC % 0 Sodium 142 Potassium 4.1 Chloride 105 Carbon Dioxide 26.3 Anion Gap 11 BUN 15 Creatinine 0.8 Estim Creat Clear Calc 70.7 eGFR > 60 BUN/Creatinine Ratio 19 Glucose 95 Calculated Osmolality 283 Calcium 9.1 Corrected Calcium 9.1 Total Bilirubin 0.7 AST 32 ALT 28 Alkaline Phosphatase 51 Total Protein 6.5 Albumin 4.3 Globulin 2.2 L Albumin/Globulin Ratio 2.0 Quality Measures Quality Measures VTE prophylaxis Advance care planning discussed with:: patient Assessment & Plan Assessment Current Active Medications: Generic Name Dose Route Start Last Admin Trade Name Freq PRN Reason Stop Dose Admin Acetaminophen 650 mg 04/10/25 15:33 04/14/25 05:17 Acetaminophen 325 Mg Tablet PO 05/10/25 15:32 650 mg Q6H PRN Administration PAIN SCALE 1-3 (mild Amlodipine Besylate 5 mg 04/14/25 09:00 04/14/25 08:38 Amlodipine Besylate 5 Mg Tablet PO 05/14/25 08:59 5 mg QDAY AIMEE Administration Aspirin 81 mg 04/10/25 15:45 04/14/25 08:38 Aspirin Ec 81 Mg Tabec PO 05/10/25 15:44 81 mg QDAY AIMEE Administration Atorvastatin Calcium 80 mg 04/11/25 21:00 04/13/25 20:11 Atorvastatin Calcium 20 Mg Tablet PO 05/11/25 20:59 80 mg HS AIMEE Administration Clopidogrel Bisulfate 75 mg 04/12/25 11:40 04/14/25 08:38 Clopidogrel Bisulfate 75 Mg Tablet PO 05/03/25 11:39 75 mg QDAY AIMEE Administration Heparin Sodium (Porcine) 5,000 unit 04/10/25 21:00 04/14/25 08:37 Heparin Sod Inj 5000 Unit/Ml Vial SC 04/24/25 20:59 5,000 unit Q12HR AIMEE Administration Labetalol HCl 10 mg 04/10/25 12:02 Labetalol Inj 5 Mg/Ml Vial 4 Ml IVP Q15M PRN hypertension Ondansetron HCl 4 mg 04/10/25 12:02 Ondansetron Inj 2 Mg/Ml Inj 2 Ml IVP 05/10/25 12:01 Q4HR PRN NAUSEA OR VOMITING Sennosides 1 tab 04/10/25 15:33 Senna Tablet PO 05/10/25 15:32 QDAY PRN constipation Protocol Plan 74-year-old female with a PMH of CAD (previous [place] in 2006) and hypertension presented for stroke-like symptoms, found to have small acute right parietal infarcts on MRI, undergoing workup for possible cardioembolic source etiology. 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, concerning for cardioembolic etiology #Stroke-like symptoms (resolved) Initial 04/10 presentation: sudden-onset symptoms of dizziness, everything going black (clarified to be a disturbance in vision rather than loss of consciousness), throat tightening, a sensation of her tongue choking her, loss of speech, involuntary drooling and difficulty swallowing, and loss of balance (but did not fall). The episode lasted for about 30 minutes before mostly self-resolving (albeit with some residual speech difficulties), at which point she had her sister bring her to [facility]. Physical exam at time of intake showed no neurological abnormalities except for some loss of sensation of the right side of V1 distribution and self-reported speech difficulties (which this health underwriter did not note by his own observation) but was otherwise WNL. In the ED, Tele-Neurology evaluated the patient to have an NIHSS of 0 and deemed her not to be a candidate for TNK administration due to lack of ongoing symptoms at the time. 04/[address] w/o contrast negative for acute hemorrhage, mass effect, or midline shift. 04/10 head/neck CTA negative for significant neck arterial stenoses and cerebral LVO or thrombus. 04/10 brain MRI ordered, showed small foci of restricted diffusion in the right parietal lobe most consistent with small acute infarcts. 04/10 echo w/ bubble study ordered, negative for PFO. ANTONIETTA ordered due to Neurology's concern for cardioembolic etiology, done on 04/14, pending read by Dr. Roche. Hemoglobin A1c ordered, showed 5.0 Lipid panel ordered, showed triglycerides 161, cholesterol 199, LDL 128, HDL 39. TSH 1.41. Plan: -Aspirin 81 mg PO QD. -Plavix 75 mg PO QD [04/12/25 - 05/03/25]. -Atorvastatin 80 mg PO HS. -Neuro checks Q4HR. -Continuous cardiac monitoring. -DVT prophylaxis: Heparin 5K SC Q12HR. -Cardiology consulted for ANTONIETTA, appreciate recommendations. -Neurology consulted, appreciate recommendations. #Orthostatic hypotension, positive There was question whether patient's presenting symptoms were suggestive of syncope or presyncope. 04/10 Orthostatic vitals showed over 20 mm Hg difference between supine BP 163/76 and sitting BP 139/87, which is suggestive of orthostatic hypotension. TTE normal EF 55-60% and grade 1 diastolic dysfunction. - Continue to hold home Atenolol. - Encourage oral hydration. - Transition from different postures slowly. #Hypertension 04/10 admission BP 164/83, possible compensatory secondary to stroke. Holding home atenolol 25 mg PO BID due to orthostatic hypotension and concern for syncope, patient additionally was bradycardic. Patient was started on amlodipine 5 mg qday and lisinopril 20 mg qday in the hospital, lisinopril then stopped due to normotension - Continue Amlodipine 5 mg qday. - Continue to hold home Atenolol. Hospital Management: Disposition: Tele Diet: Cardiac GI Prophylaxis: Not Indicated Bowel Prophylaxis: Senna PRN DVT Prophylaxis: Heparin CODE STATUS: Full Code Patient plan of care was discussed with the senior resident, Dr. Derrek Davis, and attending physician, Dr. Sanches. Rocio Urban, PGY-1 Attending Provider Attestation/Addendum I have examined the patient, reviewed labs and imaging findings, discussed the case with the resident(s), and reviewed entered orders. I agree with the plan of care as outlined in this note, with these additional summaries/recommendations: Patient is a 74-year-old female with a medical history of primary hypertension, dyslipidemia, and CAD presents to [facility] emergency department on 04/10/2025 with chief complaints of dysarthria, facial numbness, drooling, loss of consciousness and vision, and dizziness. Patient seen at bedside. No acute overnight events. Patient completed MRI brain which unfortunately did reveal a small foci of restricted diffusion in the right parietal lobe consistent with small acute infarcts. Echocardiogram completed. Case discussed with neurology who recommends ANTONIETTA and suspicion for cardiac source of acute CVA. Will continue to monitor for arrhythmia on telemetry. Patient will go for ANTONIETTA this afternoon with cardiology. Continue DAPT therapy and high intensity statin. Continue to control vascular risk factors. LDL 128. Patient completed PT and swallow evaluation. No further needs. Anticipate discharge in the next 24 to 48 hours. Patient updated on the plan and in agreement. All questions answered to satisfaction. Please see residents note for additional details and management. Dr. Verónica MD
--- NOTE | 2025-04-14 13:00 | ECHO_ITS ---
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 Saline: Agitated Saline Amount: --- ml IV Access Condition: patent with no signs of infiltration Primary Location: S2NX Mitral Valve Name Value Normal MV Doppler MV Sten PISA Radius 0.5 cm Summary 1. Indication: Stroke. 2. Bubble study negative for PFO or ASD. No LA or ANJU thrombus. 3. Prolapse of the posterior mitral leaflet noted with eccentric moderate to severe MR by visual estimation. MR quantitation showed only moderate mitral valve regurgitation with a RV of 40 ml with a PISA radius of 0.7 cm, MR V-max of 6.3 m/s, mean PG of 69 mmHg. Systolic blunting of the pulmonary veins noted with systolic reversal of 2 of the pulmonary veins. 4. Normal LV size and function. Estimated EF is 60-65%. 5. Normal RV size and function. 6. Mild aortic valve sclerosis without stenosis. Trace AI and mild TR. Report Signatures Finalized by J Luis Roche on 04/16/2025 12:01 AM
--- NOTE | 2025-04-14 13:10 | ESPR_ITS ---
Documentation for date of: 04/14/25 Subjective Subjective Interval history: Carolin is a 74-year-old female with past medical history of migraines, hypertension, broken heart syndrome in 2007, osteoarthritis, bilateral hearing aids, venous insufficiency presented to the ED with complaints of choking, slurring of speech, tongue slobbering. She describes yesterday around 10:00 AM while she was making coffee she felt sick to stomach, choking like sensation, tongue slobbering/drooling and she could not able to talk meaningfully at that time, all of the symptoms lasted for 30 minutes. She denies any similar complaints in the past. She endorses she had blackness in the both eyes during this episode for few seconds. She had a history of migraines which are mostly unilateral around the right eye but she complains she is having more dull type of headaches for which she uses Tylenol and Excedrin going on for a while which is different from the migraine headaches. She complains she awakened from the bed with the headaches. She denies any blurriness of vision, vomitings with these headaches. She endorses she is having a lot of dizzy episodes on and off for a while, occurring anytime while she is driving, while she is moving around the room and sometimes these episodes are accompanied with room spinning sensation, palpitations-heart racing sensations, and occasionally dizzy episodes are related to head turning. She also complains she had ringing sensation in the ears which is come down after she had placed on hearing aids. She endorses she is having occasional stabbing type of chest pain which lasts for few seconds to minutes, denies any aggravation on exertion, positional change, deep inspiration. At baseline she is feeling more fatigued and getting short of breath than usual. She denies any orthopnea, paroxysmal nocturnal dyspnea, abdominal distention. She had left lower limb varicosities which are progressively worsening. ED visit vitals and course: BP 164/83, pulse rate 64, respiratory 18, temperature 98.7, saturating 99% on room air. Currently on aspirin 81 mg, atorvastatin 80 mg, Plavix 75 mg. Teleneurology not recommended any thrombolytics-symptoms resolved by the time she came to the ED. CT head negative, brain MRI showing small foci of restricted diffusion on the right Parietal lobe consistent with small acute Infaracts Past medical history: History of coronary angiogram on 06/10 and she was told she had broken heart syndrome at the time, bilateral knee replacement, takes intra- articular steroids for osteoarthritis, sinus cyst surgery. Total hysterectomy for benign tumor in the uterus. Allergic history: Allergic to sulfonamides compounds. Family history: Triple bypass in her father, CHF history in mother who used to follow Dr. Roche until she was 95, maternal grandmother. 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 Patient seen at bedside today, had breakfast, denies any history of swallowing problems or any kind of esophageal interventions or previous surgeries. Patient denies any kind of gastric ulcers bleeding and any other hematemesis or hematochezia patient denies any issues with any anesthesia previously. Patient was explained all risk benefits and alternatives of ANTONIETTA including risk of perforation bleeding respiratory failure secondary to sedation injury to teeth gums esophagus and stomach. Patient understands all the risks and benefits and has provided consent for the procedure. Patient underwent procedure today without any complications, ANTONIETTA does show moderate to severe MR with prolapse on the posterior mitral valve with eccentric jet, pending final report. Exam Vital Signs Temp Pulse Resp BP Pulse Ox O2 Del Method 97.2 F 81 25 H 123/91 H 94 L Room Air 04/14/25 12:00 04/14/25 12:00 04/14/25 12:00 04/14/25 12:00 04/14/25 12:04/14/25 12:00 Narrative Exam Physical Exam General: Awake and in no acute distress. Conversational and non-toxic appearing. HEENT: Normocephalic, atraumatic, mucous membranes moist. Heart: Regular rate and rhythm, positive murmur mitral area 3/6. Non-labored respirations, symmetric chest rise, no use of accessory muscles. Lungs: Clear to auscultation with no wheezing or crackles. Abdomen: Soft, nondistended, nontender. No guarding or rebound tenderness. Neurologic: Alert and oriented x3, no gross neurological deficit, and patient able to move all 4 extremities. Extremities: No edema. Innumerable veinous varicosities of BLE, especially concentrated at the feet, anterior shins, and posterior calves. Skin: No rash or ecchymoses. Psychiatric: Cooperative, appropriate mood and affect. Objective Labs 04/15/25 04:52 04/15/25 04:52 Labs: Laboratory Results - last 24 hr 04/14/25 04:17 WBC 5.7 RBC 4.72 Hgb 14.6 Hct 43.6 MCV 92 MCH 30.9 MCHC 33.5 RDW Std Deviation 48.4 H Plt Count 266 Neut % (Auto) 60 Lymph % (Auto) 25 [place] % (Auto) 8 Eos % (Auto) 6 Baso % (Auto) 0 Neut # (Auto) 3.4 Lymph # (Auto) 1.4 [place] # (Auto) 0.4 Eos # (Auto) 0.4 Baso # (Auto) 0.0 Immature Gran # (Auto) 0.02 H Absolute Nucleated RBC 0.00 Immature Gran % 0 Nucleated RBC % 0 Sodium 142 Potassium 4.1 Chloride 105 Carbon Dioxide 26.3 Anion Gap 11 BUN 15 Creatinine 0.8 Estim Creat Clear Calc 70.7 eGFR > 60 BUN/Creatinine Ratio 19 Glucose 95 Calculated Osmolality 283 Calcium 9.1 Corrected Calcium 9.1 Total Bilirubin 0.7 AST 32 ALT 28 Alkaline Phosphatase 51 Total Protein 6.5 Albumin 4.3 Globulin 2.2 L Albumin/Globulin Ratio 2.0 Quality Measures Quality Measures VTE prophylaxis Advance care planning discussed with:: patient Assessment & Plan Assessment Current Active Medications: Generic Name Dose Route Start Last Admin Trade Name Freq PRN Reason Stop Dose Admin Acetaminophen 650 mg 04/10/25 15:33 04/14/25 05:17 Acetaminophen 325 Mg Tablet PO 05/10/25 15:32 650 mg Q6H PRN Administration PAIN SCALE 1-3 (mild Amlodipine Besylate 5 mg 04/14/25 09:00 04/14/25 08:38 Amlodipine Besylate 5 Mg Tablet PO 05/14/25 08:59 5 mg QDAY AIMEE Administration Aspirin 81 mg 04/10/25 15:45 04/14/25 08:38 Aspirin Ec 81 Mg Tabec PO 05/10/25 15:44 81 mg QDAY AIMEE Administration Atorvastatin Calcium 80 mg 04/11/25 21:00 04/13/25 20:11 Atorvastatin Calcium 20 Mg Tablet PO 05/11/25 20:59 80 mg HS AIMEE Administration Clopidogrel Bisulfate 75 mg 04/12/25 11:40 04/14/25 08:38 Clopidogrel Bisulfate 75 Mg Tablet PO 05/03/25 11:39 75 mg QDAY AIMEE Administration Heparin Sodium (Porcine) 5,000 unit 04/10/25 21:00 04/14/25 08:37 Heparin Sod Inj 5000 Unit/Ml Vial SC 04/24/25 20:59 5,000 unit Q12HR AIMEE Administration Labetalol HCl 10 mg 04/10/25 12:02 Labetalol Inj 5 Mg/Ml Vial 4 Ml IVP Q15M PRN hypertension Ondansetron HCl 4 mg 04/10/25 12:02 Ondansetron Inj 2 Mg/Ml Inj 2 Ml IVP 05/10/25 12:01 Q4HR PRN NAUSEA OR VOMITING Sennosides 1 tab 04/10/25 15:33 Senna Tablet PO 05/10/25 15:32 QDAY PRN constipation Protocol Plan Assessment and plan: Summary: Carolin is a 74-year-old female with past medical history of migraines, hypertension, broken heart syndrome in 2006, osteoarthritis, bilateral hearing aids, venous insufficiency presented to the ED with complaints of choking, slurring of speech, tongue slobbering. She was admitted for stroke workup and was consulted cardiology for ANTONIETTA as per neurology recommendations. # Moderate to severe mitral regurgitation secondary to posterior mitral valve prolapse # Acute stroke?right parietal lobe small acute infarcts # Presyncope # Atypical chest pain # Palpitations and dizziness She had symptoms of slurring of speech, drooling, choking, all of the symptoms lasted for 30 minutes. She also had cloudiness/blackness of her vision. CT head negative for any hemorrhage, infract. CTA neck showing no significant occlusion MRI showing small foci of restricted diffusion on the right Parietal lobe consistent with small acute Infaracts. She was started on aspirin, Plavix, high-dose atorvastatin. Echo on 04/12 showing normal left ventricle size, mild LVH and ejection fraction is 55-60%. grade I diastolic dysfunction. Estimated RVSP is 22 mmHg. There is mild mitral valve stenosis and mild regurgitation. Mild MAC.There is trace tricuspid valve regurgitation. The left atrium is mildly enlarged. EKG looks normal sinus rhythm with heart rate around 58 on 04/12.CTA Head negative for any occlusion. She had symptoms of palpitations, dizziness going on for a while. She had a history of hypertension but no history of atrial fibrillation. Patient denies any kind of swallowing problems or any kind of esophageal interventions or previous surgeries. Patient denies any kind of gastric ulcers bleeding and any other hematemesis or hematochezia. Patient denies any issues with anesthesia previously. Patient explained all the risks, benefits and alternatives of ANTONIETTA including the risk of perforation, bleeding, respiratory failure secondary to sedation, injury to teeth gums esophagus and stomach.? Patient understands all risks and benefits and provided consent for the procedure. We will keep her n.p.o. for now Management: -Patient underwent ANTONIETTA today ANTONIETTA positive for moderate to severe mitral regurgitation with posterior mitral valve prolapse with eccentric jet, follow-up final report -Needs outpatient Holter monitoring to rule out any abnormal rhythms or arrhythmias predisposing to stroke Ortho syncopal episodes. -For her sharp atypical chest pain she also needs stress test as outpatient. Patient will benefit from cardiac cath which will be planned outpatient later. -Keep potassium above 4 and magnesium about 2. -Can start on lisinopril 10 mg after her blood pressure stabilizes and at discharge. -Continue the stroke workup and management -Can discharge and needs outpatient workup for her syncopal episodes to rule out any cardiac etiology. Recommended cardiology clinic visit in 1 week after discharge to work up for any Cardiac etiology of syncope. # Hyperlipidemia Her triglycerides 161, total cholesterol 199, LDL 128, 39. A1c 5 TSH 1.4 ?Continue atorvastatin 80 mg at bedtime # Hypertension ?Can start on lisinopril 10 mg after her blood pressure stabilizes and during discharge. Case discussed with Attending Physician Dr. J Luis Summers MD Internal Medicine PGY-2 Disclaimer: This note was dictated by speech recognition. Minor errors in director news may be present due to voice recognition software. Attending Provider Attestation/Addendum I have personally seen and examined the patient separately on the above date of service and discussed the plan of care with the resident. I reviewed the resident Dr. Hugo Summers consultation progress note and agree with the resident findings and plan in the note above and have also edited the documentation to reflect my findings and plan. J Luis Roche M.D. Interventional Cardiology
[2025-04-14] MEDS: BENZOCAINE 20% (Hurricaine) SPRAY 1 DOSE TOP (13:43)
[2025-04-14] MEDS: MIDAZOLAM INJ 1 MG/ML VIAL 2 ML 5 MG IVP (13:44)
[2025-04-14] MEDS: fentaNYL CIT INJ 50 mCg/ML AMP 2ML 75 MCG IVP (13:44)
--- NOTE | 2025-04-14 13:51 | PC.SS ---
Rounding: Pending ANTONIETTA, DC plan home when ready
--- NOTE | 2025-04-14 18:27 | PD.RESPRO ---
Documentation for date of: 04/14/25 Subjective Subjective Interval history: No acute events overnight.?Patient seen and examined at bedside after ANTONIETTA was completed.?Patient reports no issues felt during procedure and does not remember anything after the sedation was given. Patient denies any recurrence of symptoms that she presented with. Currently just has mild sore throat. No further complaints at this time. Await ANTONIETTA results, if normal patient can be discharged home with DAPT for 21 days followed by Plavix alone and statin. Review of systems otherwise negative except what is mentioned above. Exam Vital Signs Temp Pulse Resp BP Pulse Ox O2 Del Method O2 Flow Rate 96.9 F 90 26 H 136/84 H 94 L Room Air 4 04/14/25 16:00 04/14/25 16:00 04/14/25 16:00 04/14/25 16:00 04/14/25 16:00 04/14/25 16:00 04/14/25 14:20 Narrative Exam Physical Exam General: Awake and in no acute distress. Conversational and non-toxic appearing. HEENT: Normocephalic, atraumatic, mucous membranes moist. Heart: Regular rate and rhythm, normal S1 and S2, no murmurs. Lungs: Clear to auscultation with no wheezing or crackles. Abdomen: Soft, nondistended, nontender, positive bowel sounds. ?No guarding or rebound tenderness. Neuro Stroke Exam: -Alert and oriented x3. -CN II-XII intact. -Normal visual gifford. -Normal fluent speech. -No facial droop. 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 -Strength 5/5 bilateral lower extremities. -Intact sensation bilaterally. -Normal [id number], normal [id number] testing. -Normal gait. Extremities: No edema. Skin: No rash or ecchymoses. Objective Labs 04/14/25 04:17 04/14/25 04:17 Labs: Laboratory Results - last 24 hr 04/14/25 04:17 WBC 5.7 RBC 4.72 Hgb 14.6 Hct 43.6 MCV 92 MCH 30.9 MCHC 33.5 RDW Std Deviation 48.4 H Plt Count 266 Neut % (Auto) 60 Lymph % (Auto) 25 [place] % (Auto) 8 Eos % (Auto) 6 Baso % (Auto) 0 Neut # (Auto) 3.4 Lymph # (Auto) 1.4 [place] # (Auto) 0.4 Eos # (Auto) 0.4 Baso # (Auto) 0.0 Immature Gran # (Auto) 0.02 H Absolute Nucleated RBC 0.00 Immature Gran % 0 Nucleated RBC % 0 Sodium 142 Potassium 4.1 Chloride 105 Carbon Dioxide 26.3 Anion Gap 11 BUN 15 Creatinine 0.8 Estim Creat Clear Calc 70.7 eGFR > 60 BUN/Creatinine Ratio 19 Glucose 95 Calculated Osmolality 283 Calcium 9.1 Corrected Calcium 9.1 Total Bilirubin 0.7 AST 32 ALT 28 Alkaline Phosphatase 51 Total Protein 6.5 Albumin 4.3 Globulin 2.2 L Albumin/Globulin Ratio 2.0 Quality Measures Quality Measures VTE prophylaxis Advance care planning discussed with:: patient Assessment & Plan Assessment Current Active Medications: Generic Name Dose Route Start Last Admin Trade Name Freq PRN Reason Stop Dose Admin Acetaminophen 650 mg 04/10/25 15:33 04/14/25 05:17 Acetaminophen 325 Mg Tablet PO 05/10/25 15:32 650 mg Q6H PRN Administration PAIN SCALE 1-3 (mild Amlodipine Besylate 5 mg 04/14/25 09:00 04/14/25 08:38 Amlodipine Besylate 5 Mg Tablet PO 05/14/25 08:59 5 mg QDAY AIMEE Administration Aspirin 81 mg 04/10/25 15:45 04/14/25 08:38 Aspirin Ec 81 Mg Tabec PO 05/10/25 15:44 81 mg QDAY AIMEE Administration Atorvastatin Calcium 80 mg 04/11/25 21:00 04/13/25 20:11 Atorvastatin Calcium 20 Mg Tablet PO 05/11/25 20:59 80 mg HS AIMEE Administration Clopidogrel Bisulfate 75 mg 04/12/25 11:40 04/14/25 08:38 Clopidogrel Bisulfate 75 Mg Tablet PO 05/03/25 11:39 75 mg QDAY AIMEE Administration Heparin Sodium (Porcine) 5,000 unit 04/10/25 21:00 04/14/25 08:37 Heparin Sod Inj 5000 Unit/Ml Vial SC 04/24/25 20:59 5,000 unit Q12HR AIMEE Administration Labetalol HCl 10 mg 04/10/25 12:02 Labetalol Inj 5 Mg/Ml Vial 4 Ml IVP Q15M PRN hypertension Ondansetron HCl 4 mg 04/10/25 12:02 Ondansetron Inj 2 Mg/Ml Inj 2 Ml IVP 05/10/25 12:01 Q4HR PRN NAUSEA OR VOMITING Sennosides 1 tab 04/10/25 15:33 Senna Tablet PO 05/10/25 15:32 QDAY PRN constipation Protocol Plan 74-year-old female with past medical history of CAD (previous IN in 2006) and hypertension who presented to the ED on 04/10/2025 for stroke-like symptoms including left-sided numbness, swallowing difficulty, loss of balance, and speech difficulty, admitted and found to have small acute right parietal infarcts on MRI. Neurology is consulted for further management of new acute ischemic stroke. #Acute right parietal ischemic stroke #Stroke-like symptoms, resolved Patient's symptoms resolved after 30 minutes without recurrence. MRI brain showed small foci of restricted diffusion in the right parietal lobe most consistent with small acute infarcts. No significant carotid stenoses. No cerebral large vessel arterial occlusions. Currently undergoing workup for possible cardioembolic source etiology due to multiembolic appearing pattern of infarcts. -Patient went for transesophageal echocardiogram, pending report -Continue with dual antiplatelet therapy for 21 days, followed by Plavix alone for stroke prophylaxis -Aspirin 81 mg qday - 21 days -Plavix 75 mg qday - indefinitely -Continue high intensity statin #Diffuse moderate white matter signal #History of migraine headaches #History of hypertension Reviewed MRI and patient has evidence of white matter changes which may be as a result of chronic history of migraines and/or chronic atherosclerosis. -Continue treatment of migraines however avoid triptans due to contraindication in history of stroke -Indefinite statin therapy -Strict BP control Patient was discussed with the Neurology attending, Dr. Luis. Thank you for allowing us to participate in the care of this patient. Briana Driver, PGY-3 Attending Provider Attestation/Addendum Personally have seen and examined the patient at the bedside and agreed with the resident's findings, assessment and plan of care. Patient has not had any recurrent episode or residual neurodeficit on exam. She is neurologically afocal. Follow-up with transesophageal echocardiogram report. Continue with the dual antiplatelet therapy for 21 days followed by Plavix alone for long-term with statin for prophylaxis. MRI brain did show acute infarction in in right parietal lobe and chronic nonspecific white matter changes most likely related to chronic migraine/underlying hypertension. Advise lifestyle changes and avoid triptans for migraine abortive therapy at this time because of the recent stroke.
[2025-04-14] MEDS: ATORVASTATIN CALCIUM 20 MG TABLET 80 MG PO (20:11)
[2025-04-15] VITALS: BP 122/70; PULSE 69; PULSE 74; RESP 16; TEMP 36.6; O2SAT 96
[2025-04-15 04:00] VITALS: BP 138/87; PULSE 68; PULSE 70; RESP 18; TEMP 36; O2SAT 96
[2025-04-15 06:07] LABS: Basophils # (Auto) 0.0 Thou/mm3 (0.0-0.2); Basophils % (Auto) 0 % (0-2.5); Eosinophils # (Auto) 0.4 Thou/mm3 (0.0-0.5); Eosinophils % (Auto) 6 % (0-10); Hematocrit 42.8 % (36.0-46.0); Hemoglobin 14.1 g/dL (12.0-16.0); Immature Granulocytes Auto 0.01 Thou/mm3 (0.00-0.00); Lymphocytes # (Auto) 1.9 Thou/mm3 (1.0-4.8); Lymphocytes % (Auto) 27 % (10-50); Mean Corpuscular HGB Conc 32.9 g/dl (31.0-37.0); Mean Corpuscular Hemoglobin 30.3 pg (25.0-35.0); Mean Corpuscular Volume 92 fL (80-100); Monocytes # (Auto) 0.6 Thou/mm3 (0.0-0.8); Monocytes % (Auto) 8 % (0-12); Neutrophils # (Auto) 4.1 Thou/mm3 (1.8-7.7); Neutrophils % (Auto) 59 % (37-80); Nucleated Red Blood Cell # 0.00 Thou/mm3 (0.00-0.00); Nucleated Red Blood Cell % 0 /100 WBC (0); Platelet Count 269 Thou/mm3 (140-440); RDW Standard Deviation 48.1 fL (36.4-46.3); Red Blood Count 4.66 Miln/mm3 (4.00-5.20); White Blood Count 6.9 Thou/mm3 (3.6-11.0)
[2025-04-15 06:42] LABS: Alanine Aminotransferase 41 U/L (10-49); Albumin, Serum 4.2 gm/dL (3.4-4.8); Alkaline Phosphatase 50 U/L (46-116); Anion Gap 10 (7-16); Aspartate Amino Transferase 41 U/L (0-34); BUN/Creatinine Ratio 15 Ratio (12-20); Bilirubin,Total 0.7 mg/dL (0.3-1.2); Blood Urea Nitrogen 12 mg/dL (9-23); Calcium 9.1 mg/dL (8.3-10.6); Calcium (Corrected) 9.1 mg/dL (8.5-10.1); Carbon Dioxide 25.8 mMol/L (20.0-31.0); Chloride 106 mMol/L (98-107); Creatinine (Component) 0.8 mg/dL (0.6-1.3); Estimated Creatinine Clearance 69.4 mL/min (>60); Glucose 86 mg/dL (74-106); Osmolality,Calculated 281 (275-295); Potassium 4.2 mMol/L (3.4-5.1); Sodium 142 mMol/L (136-145); eGFR > 60 See Note
[2025-04-15 08:00] VITALS: BP 110/65; PULSE 74; PULSE 93; RESP 30; TEMP 36.1; O2SAT 97
[2025-04-15 08:59] VITALS: BP 110/65; PULSE 93
[2025-04-15] MEDS: ASPIRIN EC 81 MG TABEC PO (08:59)
[2025-04-15] MEDS: CLOPIDOGREL BISULFATE 75 MG TABLET PO (08:59)
[2025-04-15] MEDS: HEPARIN SOD INJ 5000 UNIT/ML VIAL SC (09:00)
--- NOTE | 2025-04-15 11:19 | ESPR_ITS ---
Documentation for date of: 04/15/25 Subjective Subjective Interval history: Patient seen examined at bedside, underwent ANTONIETTA yesterday. No postprocedure complications. ANTONIETTA completed 04/14/2025 showed Bubble study negative for PFO or ASD. No LA or ANJU thrombus. Prolapse of the posterior mitral leaflet noted with eccentric moderate tosevere MR by visual estimation. MR quantitation showed only moderate mitral valve regurgitation with a RV of 40 ml with a PISA radius of 0.7 cm, MR V-max of 6.3 m/s, mean PG of 69 mmHg. Systolic blunting of the pulmonary veins noted with systolic reversal of 2 of the pulmonary veins. Normal LV size and function. Estimated EF is 60-65%. Normal RV size and function. Mild aortic valve sclerosis without stenosis. Trace AI and mild TR. Will defer further cardiology workup as patient had recent CVA However patient will need close outpatient cardiology follow-up considering she does have underlying chest pain for outpatient stress test Patient will also need outpatient Holter monitoring for CVA workup and patient will need close monitoring of MR Exam Vital Signs Temp Pulse Resp BP Pulse Ox O2 Del Method O2 Flow Rate 96.9 F 93 30 H 110/65 97 Room Air 4 04/15/25 08:00 04/15/25 08:59 04/15/25 08:00 04/15/25 08:59 04/15/25 08:00 04/15/25 08:00 04/14/25 14:20 Narrative Exam Physical Exam General: Awake and in no acute distress. Conversational and non-toxic appearing. HEENT: Normocephalic, atraumatic, mucous membranes moist. Heart: Regular rate and rhythm, positive murmur mitral area 3/6. Non-labored respirations, symmetric chest rise, no use of accessory muscles. Lungs: Clear to auscultation with no wheezing or crackles. Abdomen: Soft, nondistended, nontender. No guarding or rebound tenderness. Neurologic: Alert and oriented x3, no gross neurological deficit, and patient able to move all 4 extremities. Extremities: No edema. Innumerable veinous varicosities of BLE, especially concentrated at the feet, anterior shins, and posterior calves. Skin: No rash or ecchymoses. Psychiatric: Cooperative, appropriate mood and affect. Objective Labs 04/15/25 04:52 04/15/25 04:52 Labs: Laboratory Results - last 24 hr 04/15/25 04:52 WBC 6.9 RBC 4.66 Hgb 14.1 Hct 42.8 MCV 92 MCH 30.3 MCHC 32.9 RDW Std Deviation 48.1 H Plt Count 269 Neut % (Auto) 59 Lymph % (Auto) 27 [place]cl[place]an % (Auto) 8 Eos % (Auto) 6 Baso % (Auto) 0 Neut # (Auto) 4.1 Lymph # (Auto) 1.9 [place]cl[place]an # (Auto) 0.6 Eos # (Auto) 0.4 Baso # (Auto) 0.0 Immature Gran # (Auto) 0.01 H Absolute Nucleated RBC 0.00 Immature Gran % 0 Nucleated RBC % 0 Sodium 142 Potassium 4.2 Chloride 106 Carbon Dioxide 25.8 Anion Gap 10 BUN 12 Creatinine 0.8 Estim Creat Clear Calc 69.4 eGFR > 60 BUN/Creatinine Ratio 15 Glucose 86 Calculated Osmolality 281 Calcium 9.1 Corrected Calcium 9.1 Total Bilirubin 0.7 AST 41 H ALT 41 Alkaline Phosphatase 50 Albumin 4.2 Quality Measures Quality Measures VTE prophylaxis Advance care planning discussed with:: patient Assessment & Plan Assessment Current Active Medications: Generic Name Dose Route Start Last Admin Trade Name Freq PRN Reason Stop Dose Admin Acetaminophen 650 mg 04/10/25 15:33 04/14/25 20:12 Acetaminophen 325 Mg Tablet PO 05/10/25 15:32 650 mg Q6H PRN Administration PAIN SCALE 1-3 (mild Amlodipine Besylate 5 mg 04/14/25 09:00 04/15/25 08:59 Amlodipine Besylate 5 Mg Tablet PO 05/14/25 08:59 5 mg QDAY AIMEE Administration Aspirin 81 mg 04/10/25 15:45 04/15/25 08:59 Aspirin Ec 81 Mg Tabec PO 05/10/25 15:44 81 mg QDAY AIMEE Administration Atorvastatin Calcium 80 mg 04/11/25 21:00 04/14/25 20:11 Atorvastatin Calcium 20 Mg Tablet PO 05/11/25 20:59 80 mg HS AIMEE Administration Clopidogrel Bisulfate 75 mg 04/12/25 11:40 04/15/25 08:59 Clopidogrel Bisulfate 75 Mg Tablet PO 05/03/25 11:39 75 mg QDAY AIMEE Administration Heparin Sodium (Porcine) 5,000 unit 04/10/25 21:00 04/15/25 09:00 Heparin Sod Inj 5000 Unit/Ml Vial SC 04/24/25 20:59 5,000 unit Q12HR AIMEE Administration Labetalol HCl 10 mg 04/10/25 12:02 Labetalol Inj 5 Mg/Ml Vial 4 Ml IVP Q15M PRN hypertension Ondansetron HCl 4 mg 04/10/25 12:02 Ondansetron Inj 2 Mg/Ml Inj 2 Ml IVP 05/10/25 12:01 Q4HR PRN NAUSEA OR VOMITING Sennosides 1 tab 04/10/25 15:33 Senna Tablet PO 05/10/25 15:32 QDAY PRN constipation Protocol Plan Assessment and plan: Summary: Carolin is a 74-year-old female with past medical history of migraines, hypertension, broken heart syndrome in 2006, osteoarthritis, bilateral hearing aids, venous insufficiency presented to the ED with complaints of choking, slurring of speech, tongue slobbering. She was admitted for stroke workup and was consulted cardiology for ANTONIETTA as per neurology recommendations. # Moderate to severe mitral regurgitation secondary to posterior mitral valve prolapse # Acute stroke?right parietal lobe small acute infarcts # Presyncope # Atypical chest pain # Palpitations and dizziness She had symptoms of slurring of speech, drooling, choking, all of the symptoms lasted for 30 minutes. She also had cloudiness/blackness of her vision. CT head negative for any hemorrhage, infract. CTA neck showing no significant occlusion MRI showing small foci of restricted diffusion on the right Parietal lobe consistent with small acute Infaracts. She was started on aspirin, Plavix, high-dose atorvastatin. Echo on 04/12 showing normal left ventricle size, mild LVH and ejection fraction is 55-60%. grade I diastolic dysfunction. Estimated RVSP is 22 mmHg. There is mild mitral valve stenosis and mild regurgitation. Mild MAC.There is trace tricuspid valve regurgitation. The left atrium is mildly enlarged. EKG looks normal sinus rhythm with heart rate around 58 on 04/12.CTA Head negative for any occlusion. She had symptoms of palpitations, dizziness going on for a while. She had a history of hypertension but no history of atrial fibrillation. ANTONIETTA: No postprocedure complications. ANTONIETTA completed 04/14/2025 showed Bubble study negative for PFO or ASD. No LA or ANJU thrombus. Prolapse of the posterior mitral leaflet noted with eccentric moderate tosevere MR by visual estimation. MR quantitation showed only moderate mitral valve regurgitation with a RV of 40 ml with a PISA radius of 0.7 cm, MR V-max of 6.3 m/s, mean PG of 69 mmHg. Systolic blunting of the pulmonary veins noted with systolic reversal of 2 of the pulmonary veins. Normal LV size and function. Estimated EF is 60-65%. Normal RV size and function. Mild aortic valve sclerosis without stenosis. Trace AI and mild TR. Management: -Patient underwent ANTONIETTA today ANTONIETTA positive for moderate to severe mitral regurgitation with posterior mitral valve prolapse with eccentric jet as noted above. No evidence of any PFO or ASD or ANJU or LA thrombus by ANTONIETTA. Normal LV and RV size and function. -Needs outpatient Holter monitoring to rule out any abnormal rhythms or arrhythmias predisposing to stroke Ortho syncopal episodes. -For her sharp atypical chest pain she also needs stress test as outpatient. Patient will benefit from cardiac cath which will be planned outpatient later. -Keep potassium above 4 and magnesium about 2. -Can start on lisinopril 10 mg after her blood pressure stabilizes and at discharge. -Continue the stroke workup and management -Can discharge and needs outpatient workup for her syncopal episodes to rule out any cardiac etiology. Recommended cardiology clinic visit in 1 week after discharge to work up for any Cardiac etiology of syncope. # Hyperlipidemia Her triglycerides 161, total cholesterol 199, LDL 128, 39. A1c 5 TSH 1.4 ?Continue atorvastatin 80 mg at bedtime # Hypertension ?Can start on lisinopril 10 mg after her blood pressure stabilizes and during discharge. Case discussed with Attending Physician Dr. J Luis Summers MD Internal Medicine PGY-2 Disclaimer: This note was dictated by speech recognition. Minor errors in dust mop maker may be present due to voice recognition software. Attending Provider Attestation/Addendum I have personally seen and examined the patient separately on the above date of service and discussed the plan of care with the resident. I reviewed the resident Dr. Hugo Summers consultation progress note and agree with the resident findings and plan in the note above and have also edited the documentation to reflect my findings and plan. J Luis Roche M.D. Interventional Cardiology
--- NOTE | 2025-04-15 11:48 | PC.SS ---
Update: Plan is for the patient to d/c home today.
--- NOTE | 2025-04-15 11:50 | ESDS_ITS ---
<Statement entered by Gino Crawford MD - 04/28/25 09:16> I reviewed above note and agree with findings and plans. I have also personally examined the patient with medicine team and went over assessment and plan with medical team including web design intern and resident physician. <Statement entered by Gil Davis MD - 04/15/25 16:47> Patient was examined and case was reviewed with team including attending physician. Note reviewed, I agree with most of its contents and agree with the patient's care as documented by Dr. Wilmar Davis MD PGY-2 Planned Discharge Date 04/15/25 DS: Providers Provider Date of admission: 04/10/25 15:28 Primary care physician: LULI Fuller Admitting Provider: Troy Sanches MD Attending Provider on Admission: Gino Crawford MD Consults: 04/10/25 12:02 Consult to Neurology / Tele-Neurology Routine Comment: Consulting Provider: [facility] 04/11/25 05:54 Referral Speech Therapy Routine Comment: 04/11/25 08:29 PT [Referral Physical Therapy] Routine Comment: Physician Instructions: 04/13/25 07:07 Consult to Cardiology Routine Comment: ANTONIETTA Consulting Provider: J Luis Roche Instructions: ANTONIETTA 04/13/25 10:01 Consult to Neurology / Tele-Neurology Routine Comment: Multi embolic pattern infarcts right parietal lobe Consulting Provider: Jamie Luis Attending Provider on DC: Gino Crawford MD Discharging Provider: Rocio Urban DO Anticipated date of discharge: 04/15/25 DS: Diagnosis Problem List Completed Was Problem List Reviewed/Reconciled?: Yes Hospital Course Hospital Course Hospital course: 74-year-old female with a history of CAD, AR in 2007 and hypertension, presented with stroke-like symptoms, including dizziness, visual disturbances, throat tightening, speech difficulty, drooling, difficulty swallowing, and balance issues. These symptoms resolved within 30 minutes, but no residual speech difficulty. Initial imaging, including head CT and head/neck CTA, was unremarkable. Brain MRI revealed small acute ischemic infarcts in the right parietal lobe, raising suspicion for a cardioembolic source. A bubble study was negative for PFO and a ANTONIETTA was performed. Neurology and cardiology were consulted. Orthostatic hypotension was identified, likely contributing to her sy mptoms, and blood pressure management was adjusted accordingly. Home atenolol was held and discontinued due to bradycardia and orthostatic hypotension. Patient was started on Aspirin, Plavix, Atorvastatin for stroke prevention and blood pressure control. No further acute events occurred, and the patient remained at baseline without neurological deficits. Patient is medically and physically stable for discharge. Diagnosis: 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, concerning for cardioembolic etiology #Stroke-like symptoms (resolved) #Orthostatic hypotension, positive #Hypertension Discharge Plan: Follow up with primary care physician within 1 week of discharge. Follow up with Cardiology, Dr. Roche within 1 week of discharge for outpatient stress test for atypical chest pain. Needs outpatient Holter monitoring to rule out any abnormal rhythms or arrhythmias predisposing to stroke and Ortho syncopal episodes. Patient will benefit from cardiac cath which will be planned outpatient later. You have been started on lisinopril for Blood pressure control, Aspirin, plavix and atorvastatin for stroke prophylaxis, please take aspirin for 21 days with plavix and then continue only with plavix. Stop taking your home medication atenolol. Follow up with Neurology within 1-2 weeks of discharge. Should any symptoms recur or worsen patient is instructed to return to the ED. Case discussed with my senior resident Dr. Derrek Davis. Case discussed with my attending Dr. Crawford. Rocio Urban DO PGY 1 Status at Discharge Overall status at discharge: patient is back to baseline Time Spent with Patient Time attestation: Total time spent providing and/or coordinating discharge services: Time spent: Greater than 30 minutes Exam Vital Signs Temp Pulse Resp BP Pulse Ox O2 Del Method O2 Flow Rate 96.9 F 93 30 H 110/65 97 Room Air 4 04/15/25 08:00 04/15/25 08:59 04/15/25 08:00 04/15/25 08:59 04/15/25 08:00 04/15/25 08:00 04/14/25 14:20 Narrative Exam Physical Exam General: Awake and in no acute distress. Conversational and non-toxic appearing. HEENT: Normocephalic, atraumatic, mucous membranes moist. Heart: Regular rate and rhythm, no murmurs. Non-labored respirations, symmetric chest rise, no use of accessory muscles. Lungs: Clear to auscultation with no wheezing or crackles. Abdomen: Soft, nondistended, nontender. No guarding or rebound tenderness. Neurologic: Alert and oriented x3, no gross neurological deficit, and patient able to move all 4 extremities. Extremities: No edema. Innumerable veinous varicosities of BLE, especially concentrated at the feet, anterior shins, and posterior calves. Skin: No rash or ecchymoses. Psychiatric: Cooperative, appropriate mood and affect. Discharge Plan Plan Patient Disposition: HOME (Self Care) Care Plan Goals: Follow up with primary care physician within 1 week of discharge Follow up with Cardiology, Dr. Roche within 1 week of discharge for outpatient stress test for atypical chest pain Needs outpatient Holter monitoring to rule out any abnormal rhythms or arrhythmias predisposing to stroke and Ortho syncopal episodes. Patient will benefit from cardiac cath which will be planned outpatient later. You have been started on lisinopril for Blood pressure control, Aspirin, plavix and atorvastatin for stroke prophylaxis, please take aspirin for 21 days with plavix and then continue only with plavix Stop taking your home medication atenolol Follow up with Neurology within 1-2 weeks of discharge Should any symptoms recur or worsen patient is instructed to return to the ED. Prescriptions/Referrals Prescriptions/Med Rec: New atorvastatin [Lipitor] 80 mg tablet 80 mg PO HS Qty: 30 0RF clopidogrel [Plavix] 75 mg tablet 75 mg PO QDAY Qty: 30 0RF aspirin [Adult Aspirin Regimen] 81 mg tablet,delayed release (DR/EC) 81 mg PO QDAY Qty: 21 0RF lisinopril 10 mg tablet 10 mg PO QDAY Qty: 30 0RF Discontinued atenolol 25 mg tablet 25 mg PO BID Patient Comments: TAKE 1 TABLET BY MOUTH TWICE A DAY Referrals: Javier Morrison FNP [Primary Care Provider] Patient/Caregiver Discharge Instructions Print Language: Divehi Stand Alone Forms: Karuna Award Info., Patient Portal Info Letter Discharge Order Discharge Orders: Discharge (Routine); Ordered 04/15/25 Ordered By: Gil Davis Quality Discharge Quality Measures VTE prophylaxis
[2025-04-15 12:00] VITALS: BP 130/86; PULSE 70; PULSE 80; RESP 21; TEMP 36.8; O2SAT 96
[2025-04-15 13:23] LABS: Albumin/Globulin Ratio 1.8 (1.2-2.2); Globulin 2.4 gm/dL (2.3-3.5); Total Protein 6.6 gm/dL (5.7-8.2)
[2025-04-15 15:00] VITALS: BP 126/88; PULSE 88; RESP 17; TEMP 36.8; O2SAT 97
--- NOTE | 2025-04-15 15:40 | PD.RESPRO ---
Documentation for date of: 04/15/25 Subjective Subjective Interval history: Patient seen at bedside this afternoon, doing quite well, is sitting in chair ready for discharge. Still having some throat soreness but able to eat yogurt and soup today. Pending ANTONIETTA official report although patient states that results were explained to her and that it did not show any clots or vegetations, just a leaky heart valve. She is discharging home on aspirin, clopidogrel, and statin. She will be following up with Dr. Roche. Patient showed much appreciation for care this hospital visit. Exam Vital Signs Temp Pulse Resp BP Pulse Ox O2 Del Method O2 Flow Rate 98.2 F 70 21 H 130/86 H 96 Room Air 4 04/15/25 12:00 04/15/25 12:00 04/15/25 12:00 04/15/25 12:00 04/15/25 12:04/15/25 12:04/14/25 14:20 Narrative Exam Physical Exam General: Awake and in no acute distress. Conversational and non-toxic appearing. HEENT: Normocephalic, atraumatic, mucous membranes moist. Neurologic: Alert and oriented x3, no gross neurological deficit, and patient able to move all 4 extremities. Standing and walking independently. Extremities: Varicose veins in lower legs. Skin: No rash or ecchymoses. Objective Labs 04/15/25 04:52 04/15/25 04:52 Labs: Laboratory Results - last 24 hr 04/15/25 04:52 WBC 6.9 RBC 4.66 Hgb 14.1 Hct 42.8 MCV 92 MCH 30.3 MCHC 32.9 RDW Std Deviation 48.1 H Plt Count 269 Neut % (Auto) 59 Lymph % (Auto) 27 [place] % (Auto) 8 Eos % (Auto) 6 Baso % (Auto) 0 Neut # (Auto) 4.1 Lymph # (Auto) 1.9 [place] # (Auto) 0.6 Eos # (Auto) 0.4 Baso # (Auto) 0.0 Immature Gran # (Auto) 0.01 H Absolute Nucleated RBC 0.00 Immature Gran % 0 Nucleated RBC % 0 Sodium 142 Potassium 4.2 Chloride 106 Carbon Dioxide 25.8 Anion Gap 10 BUN 12 Creatinine 0.8 Estim Creat Clear Calc 69.4 eGFR > 60 BUN/Creatinine Ratio 15 Glucose 86 Calculated Osmolality 281 Calcium 9.1 Corrected Calcium 9.1 Total Bilirubin 0.7 AST 41 H ALT 41 Alkaline Phosphatase 50 Total Protein 6.6 Albumin 4.2 Globulin 2.4 Albumin/Globulin Ratio 1.8 Quality Measures Quality Measures VTE prophylaxis Advance care planning discussed with:: patient Assessment & Plan Assessment Current Active Medications: Generic Name Dose Route Start Last Admin Trade Name Freq PRN Reason Stop Dose Admin Acetaminophen 650 mg 04/10/25 15:33 04/14/25 20:12 Acetaminophen 325 Mg Tablet PO 05/10/25 15:32 650 mg Q6H PRN Administration PAIN SCALE 1-3 (mild Amlodipine Besylate 5 mg 04/14/25 09:00 04/15/25 08:59 Amlodipine Besylate 5 Mg Tablet PO 05/14/25 08:59 5 mg QDAY AIMEE Administration Aspirin 81 mg 04/10/25 15:45 04/15/25 08:59 Aspirin Ec 81 Mg Tabec PO 05/10/25 15:44 81 mg QDAY AIMEE Administration Atorvastatin Calcium 80 mg 04/11/25 21:00 04/14/25 20:11 Atorvastatin Calcium 20 Mg Tablet PO 05/11/25 20:59 80 mg HS AIMEE Administration Clopidogrel Bisulfate 75 mg 04/12/25 11:40 04/15/25 08:59 Clopidogrel Bisulfate 75 Mg Tablet PO 05/03/25 11:39 75 mg QDAY AIMEE Administration Heparin Sodium (Porcine) 5,000 unit 04/10/25 21:00 04/15/25 09:00 Heparin Sod Inj 5000 Unit/Ml Vial SC 04/24/25 20:59 5,000 unit Q12HR AIMEE Administration Labetalol HCl 10 mg 04/10/25 12:02 Labetalol Inj 5 Mg/Ml Vial 4 Ml IVP Q15M PRN hypertension Ondansetron HCl 4 mg 04/10/25 12:02 Ondansetron Inj 2 Mg/Ml Inj 2 Ml IVP 05/10/25 12:01 Q4HR PRN NAUSEA OR VOMITING Sennosides 1 tab 04/10/25 15:33 Senna Tablet PO 05/10/25 15:32 QDAY PRN constipation Protocol Plan 74-year-old female with past medical history of CAD (previous AR in 2006) and hypertension who presented to the ED on 04/10/2025 for stroke-like symptoms including left-sided numbness, swallowing difficulty, loss of balance, and speech difficulty, admitted and found to have small acute right parietal infarcts on MRI. Neurology is consulted for further management of new acute ischemic stroke. #Acute right parietal ischemic stroke #Stroke-like symptoms, resolved Patient's symptoms resolved after 30 minutes without recurrence. MRI brain showed small foci of restricted diffusion in the right parietal lobe most consistent with small acute infarcts. No significant carotid stenoses. No cerebral large vessel arterial occlusions. Currently undergoing workup for possible cardioembolic source etiology due to multiembolic appearing pattern of infarcts. Transesophageal echocardiogram did not show any evidence of cardioembolic source. -Continue with dual antiplatelet therapy for 21 days, followed by Plavix alone for stroke prophylaxis -Aspirin 81 mg qday - 21 days -Plavix 75 mg qday - indefinitely -Continue high intensity statin #Diffuse moderate white matter signal #History of migraine headaches #History of hypertension Reviewed MRI and patient has evidence of white matter changes which may be as a result of chronic history of migraines and/or chronic atherosclerosis. -Continue treatment of migraines however avoid triptans due to contraindication in history of stroke -Indefinite statin therapy -Strict BP control Patient was discussed with the Neurology attending, Dr. Luis. Thank you for allowing us to participate in the care of this patient. Briana Driver, PGY-3 Attending Provider Attestation/Addendum I personally have seen and examined the patient at the bedside and I agreed with the resident's findings, assessment and plan of care. Follow-up with ANTONIETTA. Continue with dual antiplatelet therapy followed by Plavix alone with statin for long-term prophylaxis. Patient is stable for discharge home
== END 2025-04-15 15:50 | disposition home or self-care (01) | DRG 66 ==
LOC: SERX 13:12 → SERHOLD 15:57 → S2NX 17:51
PROVIDERS: Internal Medicine Cardiovascular Disease; Nurse Practitioner Primary Care; Admitting Provider Student in an Organized Health Care Education/Training Program; Emergency Provider Family Medicine; PCP Nurse Practitioner Family; Visit Provider Internal Medicine
PROC: (CPT 93312; principal; 2025-04-14 13:00)
DX: I63.89 Other cerebral infarction (principal); I10 Essential (primary) hypertension; I25.10 Atherosclerotic heart disease of native coronary artery without angina pectoris; R29.700 NIHSS score 0; E78.5 Hyperlipidemia, unspecified; I34.0 Nonrheumatic mitral (valve) insufficiency; I34.1 Nonrheumatic mitral (valve) prolapse; R07.89 Other chest pain; I95.1 Orthostatic hypotension; I25.2 Old myocardial infarction; G43.909 Migraine, unspecified, not intractable, without status migrainosus; R13.10 Dysphagia, unspecified; Z79.02 Long term (current) use of antithrombotics/antiplatelets; Z79.82 Long term (current) use of aspirin; Z79.899 Other long term (current) drug therapy; Z88.2 Allergy status to sulfonamides; Z90.710 Acquired absence of both cervix and uterus; Z96.653 Presence of artificial knee joint, bilateral; Z97.4 Presence of external hearing-aid
CPT/HCPCS: 36415; 70450; 70496; 70498; 70544; 71045; 80053; 80061; 80307; 81001; 83036; 83735; 84100; 84443; 84484; 85025; 85610; 85730; 92610; 93005; 93306; 93312; 97161; 99152; 99285; A4649; J1644; J2250; J3010; J7030; Q9967; A9270